=== PATIENT | male | born 1980 | race Caucasian/White ===

== ENCOUNTER 2025-02-05 22:56 | Inpatient (IN) ==
--- NOTE | 2025-02-05 23:33 | Emergency Department Note ---
Impression & Plan Acute pancreatitis, Epigastric abdominal pain, Nausea ED Provider Note NAME: QUAN MILLER AGE: 44 SEX: M : 1980 ARRIVES VIA: Walk-In INFORMANT: Patient ED PROVIDER(S): Bird Perkins MD CHIEF COMPLAINT: Pancreatitis PLAN: Disposition: Admit MEDICAL DECISION MAKING: The patient is a pleasant 44-year-old gentleman with a past medical history of daily alcohol use, GERD, hyperlipidemia who presents to the emergency department via walk-in for "admission" for pancreatitis after being discharged AGAINST MEDICAL ADVICE from [place] emergency department today where he was diagnosed with pancreatitis with concern for pancreatic ductal dilatation and [facility] however the patient reported waiting for an unknown amount of time and decided to leave AGAINST MEDICAL ADVICE to come to our facility. Patient reports he had fluctuating symptoms since Monday which were worse when he would eat and earlier today became increasingly severe and so he presented to [place] emergency department upon returning home this afternoon. He denies any fevers, cough, congestion, chest pain or shortness of breath. He does admit to drinking 3-4 beers nightly. Review of [facility] [place] records demonstrates patient had a lipase elevated at [address] demonstrating subtle inflammation around the pancreas suggestive of acute pancreatitis as well as dilation of the pancreatic duct which is significantly dilated at the head (8.5 mm) however no obstructing stone visualized. On evaluation the patient is in no distress, afebrile blood pressure 190/90 vital signs otherwise stable. Appears clinically dry. Mild epigastric tenderness without guarding or rebound EKG without overt acute ischemia. WBC within normal limits. H/H 11.7/34.6 without recent for comparison. Platelets 273, within normal limits. Potassium 3.2 and electrolytes otherwise unremarkable. Chemistry without metabolic acidosis. LFTs are unremarkable. Lipase is elevated at 1621. Medical alcohol was undetectable. Patient was treated with IV hydration, antiemetics and analgesia with IV morphine. He does agree with plan for admission for further management. Case was discussed with Dr. Montanez, [facility] hospitalist, who will evaluate the patient for admission. MRCP ordered for further evaluation of patient's symptoms. Findings further characterize patient's symptoms with dilated main pancreatic duct with calculi visualized. CBD is dilated with distal smooth tapering and bilobar mild intrahepatic ductal dilatation without evidence of calculi and suggest possible stricture. Mild fat stranding is noted at the level of the distal pancreatic body and pancreatic tail region. Further management per admitting team. Triage Nursing notes reviewed and agree them. Prior/external medical records reviewed Vital Signs: reviewed Differential diagnosis: Gastroenteritis, food borne illness, infections, appendicitis, diverticulitis, inflammatory bowel disease, obstruction, GI bleed, biliary pathology, volvulus, as well as other pathologies. ER treatment provided: See below. Diagnostics interpreted by me: ECG: Normal sinus rhythm, 61 bpm, no ectopy, no overt ST elevation or depression, QTc 426, QRS 84. Cardiac Monitoring: An order for continuous cardiac monitoring was placed and demonstrated normal sinus rhythm, 61 bpm, no ectopy. Laboratory studies: See below Imaging studies: See below Consultation(s): Dr. Montanez [facility] hospitalist HPI: Per MDM. ROS: See above HPI for pertinent positives & negatives. A total of 10 systems reviewed and were otherwise negative. VITALS:See Below PHYSICAL EXAMINATION: GENERAL: Awake, alert, in no distress HENT: Normocephalic, atraumatic. Oropharynx with dry mucous membranes and otherwise unremarkable. EYES: Normal conjunctiva. Sclera non-icteric. NECK: Supple. No nuchal rigidity. FROM. No JVD. RESPIRATORY: Clear to auscultation. CARDIAC: Regular rate, normal rhythm. Extremities warm and well perfused. Pulses equal. ABDOMEN: Soft, non-distended. Mild epigastric tenderness to palpation. No rebound or guarding. No masses. MUSCULOSKELETAL: Chest examination reveals no tenderness. The back is symmetrical on inspection without obvious abnormality. There is no CVA tenderness to palpation. No joint edema. LOWER EXTREMITIES: Calves are equal size bilaterally and non-tender. No edema. No discoloration. NEURO: Normal sensorium. No sensory or motor deficits noted. SKIN: No rash or jaundice noted. Bird Perkins MD Past Med/Surg History Problem List (Updated 02/07/25 @ 03:28 by Bird Perkins MD) Nausea (Acute) Epigastric abdominal pain (Acute) Hypokalemia Hyponatremia Acute pancreatitis (Acute) Social History Smoking Status: Former smoker Second Hand Exposure: No; Do You Dip or Chew Tobacco: No; Tobacco Cessation Education Requested by Patient: No Hx Alcohol Use: Yes Alcohol type: beer Hx Substance Use: No Preferred Language: Belarusian Communication Ability: Effective Equip Tech Required: No Beliefs That Will Affect Care: None Current Living Situation: Family Other Information That Helps Us Care for You: No Feels Safe at Home: Yes Safety Concerns: Feels Safe At This Time Assistive Devices: None Allergies Allergies Allergy/AdvReac Type Severity Reaction Status Date / Time bee venom protein (honey bee) Allergy Severe THROAT Verified 02/05/25 23:59 SWELLED AFTER 1 BEE STING--SEE COMMENT Home Meds Home Medications Medication Instructions Recorded Confirmed budesonide-formoterol HFA 160 2 inh inhalation BID 02/05/25 02/06/25 mcg-4.5 mcg/actuation aerosol inhaler (Breyna) buprenorphine 8 mg-naloxone 2 mg 0.5 tab sublingual TID 02/05/25 02/06/25 sublingual tablet carvedilol 6.25 mg tablet 6.25 mg PO BID 02/05/25 02/06/25 diphenhydramine HCl 25 mg capsule 25 - 50 mg PO DIRECTED PRN 02/05/25 02/06/25 (Benadryl) Allergic Reaction losartan 100 mg tablet 100 mg PO DAILY 02/05/25 02/06/25 multivitamin 1 tab PO DAILY 02/05/25 02/06/25 omeprazole magnesium 20 mg 20 mg PO DAILY 02/05/25 02/06/25 tablet,delayed release (Prilosec OTC) Results & Data (ED) Vital Signs Vital Signs - 24 hr 02/05/25 23:04 02/05/25 23:47 02/06/25 00:00 Temperature 36.8 C Temperature Source Oral Pulse Rate 75 67 Pulse Rate from SpO2 Sensor 67 Respiratory Rate 17 15 Respiratory Effort / Characteristics Non-Labored Spontaneous Respiratory Depth Normal Respiratory Pattern Regular Blood Pressure 195/99 H Blood Pressure Mean 131 Pulse Oximetry 98 99 99 Oxygen Delivery Method Room Air Room Air Sepsis Recent Fever Within 48 Hours No Sepsis New/Unexplained Change in Mental Status No Sepsis Action Taken by Nursing No Action Required 02/06/25 00:00 02/06/25 00:30 02/06/25 00:36 Temperature Temperature Source Pulse Rate 72 76 Pulse Rate from SpO2 Sensor 73 77 Respiratory Rate 16 15 Respiratory Effort / Characteristics Respiratory Depth Respiratory Pattern Blood Pressure 185/123 H 148/99 H Blood Pressure Mean 143 124 Pulse Oximetry 99 97 Oxygen Delivery Method Room Air Room Air Sepsis Recent Fever Within 48 Hours Sepsis New/Unexplained Change in Mental Status Sepsis Action Taken by Nursing 02/06/25 01:00 Temperature Temperature Source Pulse Rate 73 Pulse Rate from SpO2 Sensor Respiratory Rate 16 Respiratory Effort / Characteristics Respiratory Depth Respiratory Pattern Blood Pressure 161/101 H Blood Pressure Mean 136 Pulse Oximetry 97 Oxygen Delivery Method Room Air Sepsis Recent Fever Within 48 Hours Sepsis New/Unexplained Change in Mental Status Sepsis Action Taken by Nursing Laboratory Data Attestation: I reviewed the patient's lab results. 02/06/25 08:07 02/06/25 08:07 Lab Results 02/05/25 02/05/25 02/06/25 Range/Units 23:22 23:35 00:04 WBC 8.27 (4.8-10.8) K/ul RBC 3.65 L (4.70-6.10) M/uL Hgb 11.7 L (14.0-18.0) g/dl POC Hgb 12.2 L (14.0-18.0) g/dl Hct 34.6 L (42.0-52.0) % POC Hct 36 L (42-52) % MCV 94.8 (80.0-100.0) fL MCH 32.1 (25.0-34.0) pg MCHC 33.8 (32.0-36.0) g/dL RDW Std Deviation 39.7 (36.4-46.3) fL RDW Coeff of Luis 11.4 L (11.5-14.5) % Plt Count 273 (130-400) K/uL MPV 10.0 (9.4-12.4) fL Immature Gran % (Auto) 0.2 % Neut % (Auto) 70.1 % Lymph % (Auto) 18.0 % Bradford % (Auto) 8.1 % Eos % (Auto) 3.1 % Baso % (Auto) 0.5 % Neut # (Auto) 5.79 (1.40-6.50) K/uL Lymph # (Auto) 1.49 (1.20-3.40) K/uL Bradford # (Auto) 0.67 H (0.11-0.59) K/uL Eos # (Auto) 0.26 (0.00-0.50) K/uL Baso # (Auto) 0.04 (0.00-0.20) K/uL Immature Gran # (Auto) 0.02 (0.01-0.20) K/uL PT 9.6 (9.0-12.0) Seconds INR 0.9 (0.9-1.1) POC Sodium 134 L (135-144) mmol/L Sodium 135 L (136-145) mmol/L POC Potassium 3.1 L (3.3-5.0) mmol/L Potassium 3.2 L (3.5-5.1) mmol/L POC Chloride 98 L (101-112) mmol/L Chloride 99 (98-107) mmol/L Carbon Dioxide 27 (21-32) mmol/L POC Total CO2 25 (24-31) mmol/L Anion Gap 9 (3-11) POC Anion Gap 15.0 L (16-25) mmol/L POC BUN 5 L (7-18) mg/dl BUN 7 (6-23) mg/dl Creatinine 1.00 (0.6-1.4) mg/dl POC Creatinine 1.0 (0.6-1.3) mg/dl Est Cr Clr Drug Dosing 89.6 ml/min eGFR 95.18 BUN/Creatinine Ratio 7.0 L (10-20) Glucose 86 (70-99(Fasting)) mg/dl POC Glucose (other) 91 (70-99) mg/dl Osmolality 283 (280-300) mOsm/kg Calcium 9.1 (8.6-10.3) mg/dl POC Ioniz Calcium Mary 1.21 (1.12-1.32) mmol/l Magnesium 2.0 (1.7-2.4) mg/dl Total Bilirubin 0.9 (0.2-1.0) mg/dl Direct Bilirubin 0.2 (0-0.2) mg/dl AST 15 (13-39) U/L ALT 13 (7-52) U/L Alkaline Phosphatase 91 (34-104) U/L Total Protein 7.1 (6.0-8.3) gm/dl Albumin 4.2 (3.4-5.0) gm/dl Globulin 2.9 (2.5-4.0) gm/dl Albumin/Globulin Ratio 1.4 (0.9-2) Lipase 1621 H (11-82) U/L Urine Color Yellow Urine Appearance Clear (Clear) Urine pH 6.0 (4.5-7.5) Ur Specific [place] > 1.045 H (1.000-1.030) Urine Protein Trace H (Negative) Urine Glucose (UA) Negative (Negative) Urine Ketones Trace H (Negative) Urine Blood Negative (Negative) Urine Nitrite Negative (Negative) Urine Bilirubin Negative (Negative) Urine Urobilinogen Negative (Negative) Ur Leukocyte Esterase Negative (Negative) Urine WBC (Auto) 0-5 (0-5) /hpf Urine RBC (Auto) 0-2 (0-2) /hpf U Hyaline Cast (Auto) 0-2 (0-2) /lpf U Epithel Cells (Auto) 0-2 (0-2) /hpf Urine Bacteria (Auto) None Seen (None Seen) Urine Osmolality 493 L (500-800) mOsm/kg Ur Random Sodium 54 mmol/L Urine Comment Ethyl Alcohol mg/dL < 10.0 (<10.0) mg/dl Administered Medications Buprenorphine/Naloxone (Buprenorphine/Naloxone 2/0.5mg Tab) 2 tab SL TID [facility] Stop: 03/08/25 08:59 Last Admin: 02/06/25 20:30 Dose: 2 tab Documented By: Admin: 02/06/25 13:31 Dose: 2 tab Documented By: Admin: 02/06/25 09:27 Dose: 2 tab Documented By: EDIN Carvedilol (Carvedilol 6.25 Mg Tab) 6.25 mg PO BID [facility] Stop: 03/08/25 08:59 Last Admin: 02/06/25 20:30 Dose: 6.25 mg Documented By: Admin: 02/06/25 10:46 Dose: 6.25 mg Documented By: EDIN Fluticasone/Vilanterol (Fluticasone/Vilanterol 100/25mcg 14 Puffs/Inhaler) 1 puffs INH DAILY [facility]; Protocol Stop: 03/08/25 08:59 Last Admin: 02/06/25 09:27 Dose: 1 puffs Documented By: EDIN Hydromorphone HCl (Hydromorphone Inj 1 Mg/Ml Syringe) 1 mg IV Q2H PRN PRN Reason: severe pain Stop: 02/20/25 06:24 Last Admin: 02/06/25 21:59 Dose: 1 mg Documented By: Admin: 02/06/25 19:41 Dose: 1 mg Documented By: Admin: 02/06/25 16:21 Dose: 1 mg Documented By: Admin: 02/06/25 12:06 Dose: 1 mg Documented By: Admin: 02/06/25 09:49 Dose: 1 mg Documented By: RRD Lactated Ringer's (Lr) 1,000 mls @ 125 mls/hr IV .Q8H KAREN Stop: 02/09/25 01:29 Last Admin: 02/06/25 19:41 Dose: 125 mls/hr Documented By: Infusion: 02/06/25 18:54 Dose: Infused Documented By: Admin: 02/06/25 10:54 Dose: 125 mls/hr Documented By: Infusion: 02/06/25 10:00 Dose: Infused Documented By: Admin: 02/06/25 02:00 Dose: 125 mls/hr Documented By: KMS Piperacillin Sod/Tazobactam Sod (Zosyn) 4.5 gm in 100 mls @ 25 mls/hr IV Q8H KAREN; Protocol Stop: 02/16/25 15:59 Last Admin: 02/06/25 23:51 Dose: 25 mls/hr Documented By: Infusion: 02/06/25 20:35 Dose: Infused Documented By: Admin: 02/06/25 16:20 Dose: 25 mls/hr Documented By: RRD Losartan Potassium (Losartan Potassium 50 Mg Tab) 100 mg PO QAM KAREN Stop: 03/08/25 08:59 Last Admin: 02/06/25 09:27 Dose: 100 mg Documented By: RRD Pantoprazole Sodium (Pantoprazole 40 Mg Tab) 40 mg PO DAILY KAREN Stop: 03/08/25 08:59 Last Admin: 02/06/25 09:27 Dose: 40 mg Documented By: RRD Discontinued Medications Hydralazine HCl (Hydralazine Hcl 20 Mg/Ml Vial) 5 mg IV NOW ONE Stop: 02/06/25 21:54 Last Admin: 02/06/25 21:59 Dose: 5 mg Documented By: EKF Hydromorphone HCl (Hydromorphone Inj 1 Mg/Ml Syringe) 1 mg IV Q4H PRN PRN Reason: Pain Stop: 02/20/25 06:24 Last Admin: 02/06/25 07:30 Dose: 1 mg Documented By: EDIN Sodium Chloride (Nss) 1,000 mls @ 999 mls/hr IV .Q1H1M ONE Stop: 02/06/25 00:18 Last Infusion: 02/06/25 00:58 Dose: Infused Documented By: Admin: 02/05/25 23:36 Dose: 999 mls/hr Documented By: SADIQ Acetaminophen (Ofirmev) 1,000 mg in 100 mls @ 400 mls/hr IV NOW STA Stop: 02/05/25 23:57 Last Infusion: 02/06/25 00:35 Dose: Infused Documented By: Admin: 02/05/25 23:59 Dose: 400 mls/hr Documented By: SADIQ Piperacillin Sod/Tazobactam Sod (Zosyn) 4.5 gm in 100 mls @ 200 mls/hr IV ONE ONE; Protocol Stop: 02/06/25 08:59 Last Infusion: 02/06/25 11:37 Dose: Infused Documented By: Admin: 02/06/25 10:45 Dose: 200 mls/hr Documented By: EDIN Ketorolac Tromethamine (Ketorolac Tromethamine 15 Mg/Ml Vial) 15 mg IV NOW ONE Stop: 02/06/25 06:26 Last Admin: 02/06/25 06:38 Dose: 15 mg Documented By: Morphine Sulfate (Morphine Sulfate 4 Mg/Ml 1 Ml Carp\\Vial) 4 mg IV NOW STA Stop: 02/05/25 23:44 Last Admin: 02/05/25 23:58 Dose: 4 mg Documented By: SADIQ Morphine Sulfate (Morphine Sulfate 4 Mg/Ml 1 Ml Carp\\Vial) 4 mg IV Q3H PRN PRN Reason: Pain (6,7,8,9,10) Stop: 02/20/25 01:23 Last Admin: 02/06/25 05:27 Dose: 4 mg Documented By: Ondansetron HCl (Ondansetron Inj 2 Mg/Ml 2 Ml Vial) 4 mg IV NOW STA Stop: 02/05/25 23:44 Last Admin: 02/05/25 23:58 Dose: 4 mg Documented By: SADIQ Potassium Chloride (Potassium Chloride Crtab 20 Meq Tabcr) 40 meq PO NOW STA Stop: 02/06/25 01:35 Last Admin: 02/06/25 02:00 Dose: 40 meq Documented By: SADIQ Imaging Data Radiologist's Impression: Cholangiopancreatography MRI 02/06/25 00:40 EXAM: MR MRCP CLINICAL HISTORY: pancreatitis TECHNIQUE: Multiplanar/multisequence MRI of the upper abdomen with MRCP was performed without use of gadolinium. COMPARISON: none FINDINGS: Dilated entire length of main pancreatic duct(diameter-6.8mm) with few ductal calculi of size 3-4mm seen near head region and associated mild diffuse pancreatic parenchymal atrophy seen. No peripancreatic collection/cyst seen. Common bile duct is dilated(8mm) with distal smooth tapering and bilobar mild intrahepatic biliary ductal dilatation. No evidence of calculi seen. Mild fat stranding is noted at the level of the distal pancreatic body and pancreatic tail region. Reactive thickening of the anterior renal fascia is noted on left side with mild perinephric fat stranding and fluid. Suggested serum amylase/lipase correlation for underlying acute over chronic pancreatitis changes. The liver is of normal signal intensity without evidence of a hepatic mass. The gallbladder is unremarkable. The adrenal glands demonstrate no gross mass. The kidneys demonstrate no evidence of contour-deforming mass lesion. IMPRESSION: 1. Dilated entire length of main pancreatic duct with few ductal calculi near head region and associated mild pancreatic parenchymal atrophy-- Features of Chronic pancreatitis. 2. No peripancreatic collection/cyst seen. 3. Common bile duct is dilated with distal smooth tapering and bilobar mild intrahepatic biliary ductal dilatation. No evidence of calculi seen- Possible distal CBD benign stricture. Suggested ERCP correlation. 4. Mild fat stranding is noted at the level of the distal pancreatic body and pancreatic tail region. Reactive thickening of the anterior renal fascia is noted on left side with mild perinephric fat stranding and fluid. Suggested serum amylase/lipase correlation for underlying acute over chronic pancreatitis changes. Electronically signed by Sridhar Monaco 02-06-2025 02:34 AM Discharge Plan Visit Data Chief Complaint: Abdominal Pain Stated Complaint: PANCREATITIS ED Provider: Bird Perkins Discharge Problem: Acute pancreatitis, Epigastric abdominal pain, Nausea Patient Disposition: Admitted As Inpatient Condition: Fair Discharge Instructions Interventions: ED Discharge Assessment Last Done: 02/06/25 04:55 Discharge Problem: Acute pancreatitis Qualifiers: Pancreatitis type: unspecified pancreatitis type Acute pancreatitis complication: unspecified Qualified Code(s): K85.90 - Acute pancreatitis without necrosis or infection, unspecified
[2025-02-05] MEDS: SODIUM CHLORIDE 0.9% 1,000 ML IV ONE (23:36)
[2025-02-05 23:58] LABS: Hematocrit (blood only) 34.6 % (42.0-52.0); Hemoglobin 11.7 g/dl (14.0-18.0); Immature Granulocytes # (auto) 0.02 K/uL (0.01-0.20); Immature Granulocytes % (auto) 0.2 %; Mean Corpuscular Hemoglobin 32.1 pg (25.0-34.0); Mean Corpuscular Volume 94.8 fL (80.0-100.0); Platelet Count 273 K/uL (130-400); RDW Standard Deviation 39.7 fL (36.4-46.3); Red Blood Count 3.65 M/uL (4.70-6.10); White Blood Count 8.27 K/ul (4.8-10.8)
[2025-02-05] MEDS: ONDANSETRON INJ 2 MG/ML 2 ML VIAL IV STA (23:58)
[2025-02-05] MEDS: MoRPHine SULFATE 4 MG/ML 1 ML CARP\\VIAL IV STA (23:58)
[2025-02-05] MEDS: ACETAMINOPHEN 1,000 MG/100 ML VIAL IV STA (23:59)
[2025-02-06 00:15] LABS: Anion Gap 9.0 (3-11); Blood Urea Nitrogen 7.0 mg/dl (6-23); Calcium 9.1 mg/dl (8.6-10.3); Carbon Dioxide 27.0 mmol/L (21-32); Chloride 99.0 mmol/L (98-107); Creatinine Clr Calc Pharmacy 89.6 ml/min; Glucose 86.0 mg/dl (70-99(Fasting)); Potassium 3.2 mmol/L (3.5-5.1); Sodium 135.0 mmol/L (136-145)
[2025-02-06 00:28] LABS: Appearance Urine Clear (Clear); Bacteria Urine Automated None Seen (None Seen); Cast Urine Automated 0-2 /lpf (0-2); Epithelial Cell Urine Auto 0-2 /hpf (0-2); Glucose Urine UA Negative (Negative); RBC Urine Automated 0-2 /hpf (0-2); WBC Urine Automated 0-5 /hpf (0-5)
[2025-02-06 00:30] LABS: INR 0.9 (0.9-1.1); Prothrombin Time 9.6 Seconds (9.0-12.0)
[2025-02-06 00:45] LABS: Alanine Aminotransferase 13.0 U/L (7-52); Albumin Globulin Ratio 1.4 (0.9-2); Alkaline Phosphatase 91.0 U/L (34-104); Bilirubin,Total 0.9 mg/dl (0.2-1.0); Globulin 2.9 gm/dl (2.5-4.0); Lipase 1621.0 U/L (11-82); Total Protein 7.1 gm/dl (6.0-8.3)
--- NOTE | 2025-02-06 01:00 | History & Physical Report ---
Date of Service February 06, 2025 Assessment & Plan (1) Acute pancreatitis: (2) Hyponatremia: (3) Hypokalemia: Plan 44-year-old male PMHx daily alcohol use, GERD, HLD and recent dx of pancreatitis the day of arrival at the [facility] who presents for abdominal pain, desiring admission to [facility] for management of such. ED evaluation at [facility] reveals CBC without leukocytosis, H/H 11.7/34.6; PT/INR 9.6/0.9; CMP Na 135, K 3.2, BUN/Cr 7.0; Lipase 1621; UA with protein, ketones, without bacteria; EtOH pending;. provided with 1L NSS, Ondansetron 4mg IV, morphine 4mg IV, acetaminophen 1g IV in ED. 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 No h/o withdrawal. - CBC without leukocytosis, H/H 11.7/34.6; PT/INR WNL; CMP Na 135, K 3.2, Ca 9.1; LFTs WNL; Lipase 1621 - repeat BMP am - CTAP completed outpatient -- Subtle inflammation around the pancreas (acute pancreatitis), dilation of the pancreatic duct, significantly dilated at the head (8.5 mm), no obstructing stone visualized - NPO - LR @ 125 mL/hr - Morphine prn pain, deescalate as pt tolerates - Zofran prn N/V - MRCP with dilated length and main pancreatic duct with few ductal calculi near head and parenchymal atrophy (chronic pancreatitis), no cyst, CBD dilated and possible distal CBD benign stricture (suggest ERCP), mild fat stranding of pancreatic body and tail as well as reactive thickening of anterior renal fascia on L side with mild perinephric stranding and fluid - GI consulted - appreciate input + recs #Hyponatremia Likely secondary to decreased intake. - Na 135, glucose 86 - BMP am - Serum osmol, Urine Na, Urine Osmol pending - IVF as above #Hypokalemia Asymptomatic currently. - K 3.2, Mg pending - BMP pending - 40 mEq KCl po --> NPO then - EKG pending #HTN- Carvedilol, losartan - continue #GERD- Omeprazole - continue #Opioid use disorder- Suboxone TID - continue #Pulm- Breyna or formulary equivalent - continue Dispo: Admit, med/sx VTE Prophylaxis: SCDs This document was dictated utilizing [employer]ama. Please excuse any gra mmatical errors that may be secondary to use of this software. Admission and Anticipated Discharge Date Admission Date: 02/06/2025 History of Present Illness Chief Complaint: Abdominal pain Primary Care Provider: Andre Farrar DO 44-year-old male PMHx daily alcohol use, GERD, HLD and recent dx of pancreatitis the day of arrival at the [facility] who presents for abdominal pain, desiring admission to [facility] for management of such. 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 He states that he has had this pain in the past and after resting it normally will go away however it did not at this time. The following day he woke up and still had RUQ abdominal pain, stating that he just felt he was in his upper abdomen and moved more towards the center. He took his blood pressure medications that morning and had an episode of nausea with vomiting. He was unable to eat much and believes this is why he threw up. He did have a bowel movement. And approximate 2 hours later the pain had resolved. He states that he normally drinks water and green tea throughout the day but this was causing him some abdominal pain. He did try to eat chicken noodle soup but the pain became significantly worse after doing so. On the day of arrival, he states that his pain was "excruciating", rating it a 7-8 out of 10 on the pain scale at its worst, so he decided to come to the ED. His current pain is a 5 out of 10 on the pain scale and he is not having any nausea or vomiting. States he has never had this happen before. Patient states that he drinks approximately 2-4 beers per night, every night. He has never had pancreatitis in the past, but that he has had the symptoms occur in the past. Overall patient denies chest pain, SOB, palpitations, diarrhea/constipation, numbness/tingling, fever/chills, URI symptoms, LUTS, weakness, or syncope. Patient takes his medications as prescribed. At [facility], he was diagnosed with pancreatitis and there was concern for pancreatic ductal dilatation. Pt was to be transferred to [facility] for ERCP, however after an extended period of waiting, he decided to leave [place] and come to [facility]. [facility] records reveal a lipase of [address] showing subtle inflammation around the pancreas which is suggestive of acute pancreatitis and dilation of pancreatic duct, and significantly dilated at the head (8.5mm) without obstructing stone identified. ED evaluation at [facility] reveals CBC without leukocytosis, H/H 11.7/34.6; PT/INR 9.6/0.9; CMP Na 135, K 3.2, BUN/Cr 7.0; Lipase 1621; UA with protein, ketones, without bacteria; EtOH pending;. provided with 1L NSS, Ondansetron 4mg IV, morphine 4mg IV, acetaminophen 1g IV in ED. Please see Dr. Montanez's attestation for adjustments/additions to treatment plan. Allergies Allergy/AdvReac Type Severity Reaction Status Date / Time bee venom protein (honey bee) Allergy Severe THROAT Verified 02/05/25 23:59 SWELLED AFTER 1 BEE STING--SEE COMMENT Home Medications Medication Instructions Recorded Confirmed Type budesonide-formoterol HFA 160 2 inh inhalation BID 02/05/25 02/06/25 History mcg-4.5 mcg/actuation aerosol inhaler (Breyna) buprenorphine 8 mg-naloxone 2 mg 0.5 tab sublingual TID 02/05/25 02/06/25 History sublingual tablet carvedilol 6.25 mg tablet 6.25 mg PO BID 02/05/25 02/06/25 History diphenhydramine HCl 25 mg capsule 25 - 50 mg PO DIRECTED PRN 02/05/25 02/06/25 History (Benadryl) Allergic Reaction losartan 100 mg tablet 100 mg PO DAILY 02/05/25 02/06/25 History multivitamin 1 tab PO DAILY 02/05/25 02/06/25 History omeprazole magnesium 20 mg 20 mg PO DAILY 02/05/25 02/06/25 History tablet,delayed release (Prilosec OTC) Past Med/Surg History Problem List (Updated 02/06/25 @ 02:20 by Ryley Cornejo PA-C) Hypokalemia Hyponatremia Acute pancreatitis Social History Smoking Status: Former smoker Preferred Language: [place] Feels Safe at Home: Yes Review of Systems Review of Systems: All systems reviewed & are unremarkable except as noted in Subjective Physical Exam Physical Exam: General: No acute distress Skin: Warm and dry Head: Normocephalic, atraumatic Eyes: PERRL, conjunctivae clear, sclera non-icteric; wearing glasses ENT: External ear and ear canal without swelling; nose atraumatic; good dentition, tongue normal appearance, pharynx normal Neck: Supple, no LAD Cardio: RRR, no M/G/R, S1 and S2 normal Resp: No respiratory distress, Lungs CTA in all lobes bilaterally, no wheezes, rales, or rhonchi Abdomen: Soft, symmetric, mild tenderness to palpation epigastric area; No masses or hepatosplenomegaly; Bowel sounds normoactive MSK: No deformities; pulses palpable and equal; no edema. Neuro: Awake, alert; Sensation intact bilaterally; CN grossly intact Psych: Appropriate mood and affect; good judgement and insight. Results & Data Results & Data Vital Signs (Past 12 Hours) Vital Signs Temp Pulse Resp BP Pulse Ox O2 Del Method 02/06/25 00:36 76 15 97 Room Air 02/06/25 00:30 148/99 H 02/06/25 00:00 72 16 185/123 H 99 Room Air 02/06/25 00:00 99 Room Air 02/05/25 23:47 67 15 99 02/05/25 23:04 36.8 C 75 17 195/99 H 98 Room Air Laboratory Results 02/06/25 02/05/25 02/05/25 00:04 23:35 23:22 WBC 8.27 RBC 3.65 L Hgb 11.7 L POC Hgb 12.2 L Hct 34.6 L POC Hct 36 L MCV 94.8 MCH 32.1 MCHC 33.8 RDW Std Deviation 39.7 RDW Coeff of Luis 11.4 L Plt Count 273 MPV 10.0 Immature Gran % (Auto) 0.2 Neut % (Auto) 70.1 Lymph % (Auto) 18.0 Ray % (Auto) 8.1 Eos % (Auto) 3.1 Baso % (Auto) 0.5 Neut # (Auto) 5.79 Lymph # (Auto) 1.49 Ray # (Auto) 0.67 H Eos # (Auto) 0.26 Baso # (Auto) 0.04 Immature Gran # (Auto) 0.02 PT 9.6 INR 0.9 POC Sodium 134 L Sodium 135 L POC Potassium 3.1 L Potassium 3.2 L POC Chloride 98 L Chloride 99 Carbon Dioxide 27 POC Total CO2 25 Anion Gap 9 POC Anion Gap 15.0 L POC BUN 5 L BUN 7 Creatinine 1.00 POC Creatinine 1.0 Est Cr Clr Drug Dosing 89.6 eGFR 95.18 BUN/Creatinine Ratio 7.0 L Glucose 86 POC Glucose (other) 91 Calcium 9.1 POC Ioniz Calcium Mary 1.21 Total Bilirubin 0.9 Direct Bilirubin 0.2 AST 15 ALT 13 Alkaline Phosphatase 91 Total Protein 7.1 Albumin 4.2 Globulin 2.9 Albumin/Globulin Ratio 1.4 Lipase 1621 H Urine Color Yellow Urine Appearance Clear Urine pH 6.0 Ur Specific [place] > 1.045 H Urine Protein Trace H Urine Glucose (UA) Negative Urine Ketones Trace H Urine Blood Negative Urine Nitrite Negative Urine Bilirubin Negative Urine Urobilinogen Negative Ur Leukocyte Esterase Negative Urine WBC (Auto) 0-5 Urine RBC (Auto) 0-2 U Hyaline Cast (Auto) 0-2 U Epithel Cells (Auto) 0-2 Urine Bacteria (Auto) None Seen Urine Comment Diagnostic Findings [place] [phone] Magnetic Resonance Report Patient: QUAN MILLER Admit Date: 02/05/25 MR#: [id number] Address1: [address] [place] [address] Acct ID:[id number] Address2: Date: 1980 [facility] Zip: [place] [address] Age: 44 Location: ED Sex: M Room/Bed: Att Phy: Diagnosis: PANCREATITIS Haylie Phy: Andre Farrar DO Service Date: 02/06/25 [facility] Phy: Interpreting Phy: Sridhar Chávez MDAdmit Phy: Ordering Phy: Bird Perkins M.D. cc: ~ EXAM: MR MRCP CLINICAL HISTORY: pancreatitis TECHNIQUE: Multiplanar/multisequence MRI of the upper abdomen with MRCP was performed without use of gadolinium. COMPARISON: none FINDINGS: Dilated entire length of main pancreatic duct(diameter-6.8mm) with few ductal calculi of size 3-4mm seen near head region and associated mild diffuse pancreatic parenchymal atrophy seen. No peripancreatic collection/cyst seen. Common bile duct is dilated(8mm) with distal smooth tapering and bilobar mild intrahepatic biliary ductal dilatation. No evidence of calculi seen. Mild fat stranding is noted at the level of the distal pancreatic body and pancreatic tail region. Reactive thickening of the anterior renal fascia is noted on left side with mild perinephric fat stranding and fluid. Suggested serum amylase/lipase correlation for underlying acute over chronic pancreatitis changes. The liver is of normal signal intensity without evidence of a hepatic mass. The gallbladder is unremarkable. The adrenal glands demonstrate no gross mass. The kidneys demonstrate no evidence of contour-deforming mass lesion. IMPRESSION: 1. Dilated entire length of main pancreatic duct with few ductal calculi near head region and associated mild pancreatic parenchymal atrophy-- Features of Chronic pancreatitis. 2. No peripancreatic collection/cyst seen. 3. Common bile duct is dilated with distal smooth tapering and bilobar mild intrahepatic biliary ductal dilatation. No evidence of calculi seen- Possible distal CBD benign stricture. Suggested ERCP correlation. 4. Mild fat stranding is noted at the level of the distal pancreatic body and pancreatic tail region. Reactive thickening of the anterior renal fascia is noted on left side with mild perinephric fat stranding and fluid. Suggested serum amylase/lipase correlation for underlying acute over chronic pancreatitis changes. Electronically signed by Sridhar Chávez 02-06-2025 02:34 AM Dictated: 02/06/25 0148 Transcribed: Medications Administered 1L NSS Ondansetron 4mg IV Morphine 4mg IV Acetaminophen 1g IV Code Status & VTE Plan Code Status Full Supervising Physician Co-Signing Physician Notes Patient seen and examined, chart reviewed, case discussed with MICHELLE Cornejo I agree with the assessment and plan as document above. In brief, patient is a 44-year-old male presenting with abdominal pain. Was [facility] at [facility] earlier today for these complaints and had imaging and labs done. Findings suggestive of acute pancreatitis. some dilation of the pancreatic duct, significantly dilated at the head (8.5 mm). No obstructing stone visualized Patient in mild discomfort at present, nausea has improved Came to [place] [facility] for ERCP On physical exam he is resting comfortably, no acute distress Skin warm, dry, intact, no rashes or lesions HEENTmoist [place] membranes, neck supple Heart+ S1, S2, regular, no murmur/rub/gallops LungsCTA anteriorly Abdomensoft, tender in the mid epigastric area, no rebound/guarding Labs and images reviewed Sodium = 135, potassium = 3.2 Lipase = 1621 MRCP obtained Assessment/plan Will keep patient n.p.o., liberal use of IV fluids Pain control antiemetics as needed GI consultation appreciated. Possible ERCP in the morning Remainder as above PG Care Time/CCT Total # of Minutes Spent Total Time Spent with Patient: Total time spent is greater than 50% in coordination of care (as documented) at patient's floor/unit and/or counseling patient: Coding Level of Care Code 32223 INT INP/OBS CARE 375MIN Diagnoses Acute pancreatitis K85.90 Hyponatremia E87.1 Hypokalemia E87.6
[2025-02-06] MEDS ORDERED: MoRPHine SULFATE 2 MG/ML CARP IV PRN (01:24)
[2025-02-06] MEDS: POTASSIUM CHLORIDE CRTAB 20 MEQ TABCR PO STA (02:00)
[2025-02-06] MEDS: LACTATED RINGER'S 1,000 ML IV SCH (02:00)
--- NOTE | 2025-02-06 02:35 | Magnetic Resonance Report ---
EXAM: MR MRCP CLINICAL HISTORY: pancreatitis TECHNIQUE: Multiplanar/multisequence MRI of the upper abdomen with MRCP was performed without use of gadolinium. COMPARISON: none FINDINGS: Dilated entire length of main pancreatic duct(diameter-6.8mm) with few ductal calculi of size 3-4mm seen near head region and associated mild diffuse pancreatic parenchymal atrophy seen. No peripancreatic collection/cyst seen. Common bile duct is dilated(8mm) with distal smooth tapering and bilobar mild intrahepatic biliary ductal dilatation. No evidence of calculi seen. Mild fat stranding is noted at the level of the distal pancreatic body and pancreatic tail region. Reactive thickening of the anterior renal fascia is noted on left side with mild perinephric fat stranding and fluid. Suggested serum amylase/lipase correlation for underlying acute over chronic pancreatitis changes. The liver is of normal signal intensity without evidence of a hepatic mass. The gallbladder is unremarkable. The adrenal glands demonstrate no gross mass. The kidneys demonstrate no evidence of contour-deforming mass lesion. IMPRESSION: 1. Dilated entire length of main pancreatic duct with few ductal calculi near head region and associated mild pancreatic parenchymal atrophy-- Features of Chronic pancreatitis. 2. No peripancreatic collection/cyst seen. 3. Common bile duct is dilated with distal smooth tapering and bilobar mild intrahepatic biliary ductal dilatation. No evidence of calculi seen- Possible distal CBD benign stricture. Suggested ERCP correlation. 4. Mild fat stranding is noted at the level of the distal pancreatic body and pancreatic tail region. Reactive thickening of the anterior renal fascia is noted on left side with mild perinephric fat stranding and fluid. Suggested serum amylase/lipase correlation for underlying acute over chronic pancreatitis changes. Electronically signed by Sridhar Monaco 02-06-2025 02:34 AM
[2025-02-06 02:41] LABS: Magnesium 2.0 mg/dl (1.7-2.4)
[2025-02-06] MEDS: MoRPHine SULFATE 4 MG/ML 1 ML CARP\\VIAL IV PRN (05:27)
[2025-02-06] MEDS ORDERED: POLYETHYLENE (MIRALAX) 17 GM PACK PO PRN (05:31)
[2025-02-06] MEDS ORDERED: MELATONIN 3 MG TAB PO PRN (05:31)
[2025-02-06] MEDS ORDERED: NALOXONE HCL 0.4 MG/1 ML VIAL/CARP IV PRN (05:31)
[2025-02-06] MEDS ORDERED: HYDROmorphone INJ 0.5 MG/0.5 ML SYR IV PRN ×2 (06:25→09:22)
[2025-02-06] MEDS: KETOROLAC TROMETHAMINE 15 MG/ML VIAL IV ONE (06:38)
[2025-02-06] MEDS: HYDROmorphone INJ 1 MG/ML SYRINGE IV PRN ×2 (07:30→09:49)
[2025-02-06 08:36] LABS: Hematocrit (blood only) 30.2 % (42.0-52.0); Hemoglobin 10.3 g/dl (14.0-18.0); Mean Corpuscular Hemoglobin 32.4 pg (25.0-34.0); Mean Corpuscular Volume 95.0 fL (80.0-100.0); Platelet Count 215 K/uL (130-400); RDW Standard Deviation 39.3 fL (36.4-46.3); Red Blood Count 3.18 M/uL (4.70-6.10); White Blood Count 6.45 K/ul (4.8-10.8)
[2025-02-06 09:05] LABS: Alanine Aminotransferase 9.0 U/L (7-52); Albumin Globulin Ratio 1.4 (0.9-2); Alkaline Phosphatase 78.0 U/L (34-104); Anion Gap 7.0 (3-11); Bilirubin,Total 0.8 mg/dl (0.2-1.0); Blood Urea Nitrogen 6.0 mg/dl (6-23); Calcium 8.8 mg/dl (8.6-10.3); Carbon Dioxide 25.0 mmol/L (21-32); Chloride 105.0 mmol/L (98-107); Creatinine Clr Calc Pharmacy 101.7 ml/min; Globulin 2.5 gm/dl (2.5-4.0); Glucose 95.0 mg/dl (70-99(Fasting)); Potassium 4.0 mmol/L (3.5-5.1); Sodium 137.0 mmol/L (136-145); Total Protein 6.1 gm/dl (6.0-8.3)
[2025-02-06] MEDS: BUPRENORPHINE/NALOXONE 2/0.5MG TAB SL SCH (09:27)
[2025-02-06] MEDS: LOSARTAN POTASSIUM 50 MG TAB PO SCH (09:27)
[2025-02-06] MEDS: FLUTICASONE/VILANTEROL 100/25MCG 14 PUFFS/INHALER INH SCH (09:27)
--- NOTE | 2025-02-06 10:32 | Gastrointestinal Consultation ---
Date of Consultation February 06, 2025 Assessment & Plan (1) Acute pancreatitis: Acute on chronic pancreatitis picture. Currently would continue NPO status with aggressive IV fluid hydration. Continue pain management per primary team. Continue to monitor LFTs. Did discuss MRCP with Dr. Starr who reviewed this imaging. No current emergent plans for ERCP at this time. Will continue to follow and give further guidance pending patient's clinical course. Patient should have outpatient EUS. Needs to focus on alcohol cessation. Will plan eventual implementation of pancreatic enzymes as the acute picture improves and diet is advanced. Supervising Physician Co-Signing Physician Notes I saw and examined this patient with our nurse practitioner and agree with her assessment and plan. Clinical picture consistent with acute on chronic pancreatitis due to alcoholism. Calcifications support alcohol as the etiology. Suspect tapering of the bile duct seen on imaging is related to his chronic pancreatitis. Normal LFTs make a neoplastic process less likely. However chronic pancreatitis puts patients at an increased risk for pancreatic neoplasm and 10% of people with pancreatic cancer present with pancreatitis. In light of this I recommend reimaging either with a repeat MRI or endoscopic ultrasound to better evaluate the head of the pancreas and distal bile duct in 4 to 6 weeks. History of Present Illness Reason for Consultation: Pancreatitis, dilated duct Attending Physician: Rao Romero MD History of Present Illness Patient is a 44 yo male with PMH of significant alcohol use, GERD, HLD, who was diagnosed with pancreatitis at [facility]. He notes he developed significant epigastric/RUQ pain. He vomited once due to pain. He was unable to eat at home. The pain was severe in nature and when he had previously had a similar episode he was instructed by an urgent care provider to go to the ED if it happened again, so this is what he did. He left [facility] from [place] after they attempted to transfer him to [facility] because he didn't want to wait. A CT scan at [facility] reportedly suggested pancreatitis and dilation of the pancreatic duct at the head. There was no obstructing stone noted. Lipase was 1800. AT [facility] he had an MRCP that indicated: IMPRESSION: 1. Dilated entire length of main pancreatic duct with few ductal calculi near head region and associated mild pancreatic parenchymal atrophy-- Features of Chronic pancreatitis. 2. No peripancreatic collection/cyst seen. 3. Common bile duct is dilated with distal smooth tapering and bilobar mild intrahepatic biliary ductal dilatation. No evidence of calculi seen- Possible distal CBD benign stricture. Suggested ERCP correlation. 4. Mild fat stranding is noted at the level of the distal pancreatic body and pancreatic tail region. Reactive thickening of the anterior renal fascia is noted on left side with mild perinephric fat stranding and fluid. Suggested serum amylase/lipase correlation for underlying acute over chronic pancreatitis changes. His WBC is within normal limits. He is afebrile. AST 13, ALT 9, T bili 0.8. He notes improvement of pain with his IV pain meds. He is NPO and receiving IV flui ds. No jaundice. No unintentional weight loss. He notes his PCP had previously advised that he reduce alcohol and red meat consumption. He does tell me he has 2-3 drinks multiple nights per week. He notes he never exceeds 5-6 drinks. He denies history of cholesterol issues. He does endorse similar episodes of this pain at home for which he did not seek evaluation. No new medications. No recent viral infections. Allergies Allergy/AdvReac Type Severity Reaction Status Date / Time bee venom protein (honey bee) Allergy Severe THROAT Verified 02/05/25 23:59 SWELLED AFTER 1 BEE STING--SEE COMMENT Home Medications Medication Instructions Recorded Confirmed Type budesonide-formoterol HFA 160 2 inh inhalation BID 02/05/25 02/06/25 History mcg-4.5 mcg/actuation aerosol inhaler (Breyna) buprenorphine 8 mg-naloxone 2 mg 0.5 tab sublingual TID 02/05/25 02/06/25 History sublingual tablet carvedilol 6.25 mg tablet 6.25 mg PO BID 02/05/25 02/06/25 History diphenhydramine HCl 25 mg capsule 25 - 50 mg PO DIRECTED PRN 02/05/25 02/06/25 History (Benadryl) Allergic Reaction losartan 100 mg tablet 100 mg PO DAILY 02/05/25 02/06/25 History multivitamin 1 tab PO DAILY 02/05/25 02/06/25 History omeprazole magnesium 20 mg 20 mg PO DAILY 02/05/25 02/06/25 History tablet,delayed release (Prilosec OTC) Patient History Social History Smoking Status: Former smoker Second Hand Exposure: No; Do You Dip or Chew Tobacco: No; Tobacco Cessation Education Requested by Patient: No Hx Alcohol Use: Yes Alcohol type: beer Hx Substance Use: No Preferred Language: Citizen Of [place] Communication Ability: Effective Flight Superintendent Required: No Beliefs That Will Affect Care: None Current Living Situation: Family Other Information That Helps Us Care for You: No Feels Safe at Home: Yes Safety Concerns: Feels Safe At This Time Assistive Devices: None Review of Systems Constitutional: no fever and no chills Respiratory: no cough and no dyspnea Cardiovascular: no chest pain Gastrointestinal: + abdominal pain; no heartburn, no coffe e ground emesis and no melena Physical Exam Constitutional: well developed Gastrointestinal (Abdomen): normal bowel sounds, soft, nontender, no hepatosplenomegaly Psychiatric: Orientation: alert and oriented x 3 Results & Data Vital Signs (Past 12 Hours) Vital Signs Temp Pulse Pulse Resp BP BP BP 02/06/25 09:15 59 L 193/104 H 201/88 H 02/06/25 07:11 36.7 C 55 L 16 175/96 H 02/06/25 05:33 36.9 C 58 L 16 178/90 H 02/06/25 05:00 153/96 H 02/06/25 04:30 78 22 146/91 H 02/06/25 04:00 84 18 144/86 H 02/06/25 03:30 68 15 02/06/25 03:00 76 19 150/87 H 02/06/25 02:30 65 12 146/91 H 02/06/25 02:11 75 02/06/25 02:00 87 29 H 02/06/25 01:00 73 16 161/101 H 02/06/25 00:36 76 15 02/06/25 00:30 148/99 H 02/06/25 00:00 72 16 185/123 H 02/06/25 00:00 02/05/25 23:47 67 15 02/05/25 23:04 36.8 C 75 17 195/99 H Pulse Ox O2 Del Method 02/06/25 09:15 02/06/25 07:11 97 Room Air 02/06/25 05:33 100 Room Air 02/06/25 05:00 02/06/25 04:30 97 Room Air 02/06/25 04:00 98 Room Air 02/06/25 03:30 96 02/06/25 03:00 99 Room Air 02/06/25 02:30 97 Room Air 02/06/25 02:11 02/06/25 02:00 97 Room Air 02/06/25 01:00 97 Room Air 02/06/25 00:36 97 Room Air 02/06/25 00:30 02/06/25 00:00 99 Room Air 02/06/25 00:00 99 Room Air 02/05/25 23:47 99 02/05/25 23:04 98 Room Air Laboratory Results Laboratory Results - last 48 hr 02/05/25 02/05/25 02/06/25 23:22 23:35 00:04 WBC 8.27 RBC 3.65 L Hgb 11.7 L POC Hgb 12.2 L Hct 34.6 L POC Hct 36 L MCV 94.8 MCH 32.1 MCHC 33.8 RDW Std Deviation 39.7 RDW Coeff of Luis 11.4 L Plt Count 273 MPV 10.0 Immature Gran % (Auto) 0.2 Neut % (Auto) 70.1 Lymph % (Auto) 18.0 Marathon % (Auto) 8.1 Eos % (Auto) 3.1 Baso % (Auto) 0.5 Neut # (Auto) 5.79 Lymph # (Auto) 1.49 Marathon # (Auto) 0.67 H Eos # (Auto) 0.26 Baso # (Auto) 0.04 Immature Gran # (Auto) 0.02 PT 9.6 INR 0.9 POC Sodium 134 L Sodium 135 L POC Potassium 3.1 L Potassium 3.2 L POC Chloride 98 L Chloride 99 Carbon Dioxide 27 POC Total CO2 25 Anion Gap 9 POC Anion Gap 15.0 L POC BUN 5 L BUN 7 Creatinine 1.00 POC Creatinine 1.0 Est Cr Clr Drug Dosing 89.6 eGFR 95.18 BUN/Creatinine Ratio 7.0 L Glucose 86 POC Glucose (other) 91 Osmolality 283 Calcium 9.1 POC Ioniz Calcium Mary 1.21 Magnesium 2.0 Total Bilirubin 0.9 Direct Bilirubin 0.2 AST 15 ALT 13 Alkaline Phosphatase 91 Total Protein 7.1 Albumin 4.2 Globulin 2.9 Albumin/Globulin Ratio 1.4 Lipase 1621 H Urine Color Yellow Urine Appearance Clear Urine pH 6.0 Ur Specific Blanchard > 1.045 H Urine Protein Trace H Urine Glucose (UA) Negative Urine Ketones Trace H Urine Blood Negative Urine Nitrite Negative Urine Bilirubin Negative Urine Urobilinogen Negative Ur Leukocyte Esterase Negative Urine WBC (Auto) 0-5 Urine RBC (Auto) 0-2 U Hyaline Cast (Auto) 0-2 U Epithel Cells (Auto) 0-2 Urine Bacteria (Auto) None Seen Urine Osmolality 493 L Ur Random Sodium 54 Urine Comment Ethyl Alcohol mg/dL < 10.0 02/06/25 08:07 WBC 6.45 RBC 3.18 L Hgb 10.3 L POC Hgb Hct 30.2 L POC Hct MCV 95.0 MCH 32.4 MCHC 34.1 RDW Std Deviation 39.3 RDW Coeff of Luis 11.3 L Plt Count 215 MPV 10.3 Immature Gran % (Auto) Neut % (Auto) Lymph % (Auto) Marathon % (Auto) Eos % (Auto) Baso % (Auto) Neut # (Auto) Lymph # (Auto) Marathon # (Auto) Eos # (Auto) Baso # (Auto) Immature Gran # (Auto) PT INR POC Sodium Sodium 137 POC Potassium Potassium 4.0 D POC Chloride Chloride 105 Carbon Dioxide 25 POC Total CO2 Anion Gap 7 POC Anion Gap POC BUN BUN 6 Creatinine 0.88 POC Creatinine Est Cr Clr Drug Dosing 101.7 eGFR 108.74 BUN/Creatinine Ratio 6.8 L Glucose 95 POC Glucose (other) Osmolality Calcium 8.8 POC Ioniz Calcium Mary Magnesium Total Bilirubin 0.8 Direct Bilirubin AST 13 ALT 9 Alkaline Phosphatase 78 Total Protein 6.1 Albumin 3.6 Globulin 2.5 Albumin/Globulin Ratio 1.4 Lipase Urine Color Urine Appearance Urine pH Ur Specific Blanchard Urine Protein Urine Glucose (UA) Urine Ketones Urine Blood Urine Nitrite Urine Bilirubin Urine Urobilinogen Ur Leukocyte Esterase Urine WBC (Auto) Urine RBC (Auto) U Hyaline Cast (Auto) U Epithel Cells (Auto) Urine Bacteria (Auto) Urine Osmolality Ur Random Sodium Urine Comment Ethyl Alcohol mg/dL PG Care Time/CCT Total # of Minutes Spent Total Time Spent with Patient: Total time spent is greater than 50% in coordination of care (as documented) at patient's floor/unit and/or counseling patient: Coding Level of Care Code 00249 INT INP/OBS CARE 2/55MIN Diagnoses Acute pancreatitis K85.90
[2025-02-06] MEDS: PIPERACILLIN/TAZOBACTAM 4.5 GM/100 ML BAG IV ONE (10:45)
--- NOTE | 2025-02-06 14:41 | Hospitalist Progress Note ---
Date of Service February 06, 2025 Assessment & Plan (1) Acute pancreatitis: (2) Hyponatremia: (3) Hypokalemia: Plan 44-year-old male PMHx daily alcohol use, GERD, HLD and recent dx of pancreatitis the day of arrival at the [facility] who presents for abdominal pain, desiring admission to [facility] for management of such. #Acute Pancreatitis Symptoms of abdominal pain, started 3 days [employer]. 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 No h/o withdrawal. CBC/BMP stable LFTs WNL. Lipase 1621 on admission. CTAP outpatient: subtle inflammation around pancreas, dilation of pancreatic duct, significantly dilated @ head, no obstructing stone visualized. MRCP: dilated entire length of main pancreatic duct w/ few ductal calculi near head region & associated mild pancreatic parenchymal atrophy. Features of chronic pancreatitis. CBD dilated w/ distal smooth tapering & bilobar mild intrahepatic biliary ductal dilatation. No evidence of calculi seen - possible CBD benign stricture. Suggest ERCP. mild bernarda stranding @ level of distal pancreatic body & pancreatic tail lesion GI consulted -> continue NPO status + fluid hydration. Monitor LFTs. No emergent plans for ERCP @ this time. Continue IV Zosyn Dilaudid prn for pain. #Hyponatremia - resolved Likely secondary to decreased intake. Na 135 on admission w/ improvement to 137 following IVF Continue to monitor on daily BMP #Hypokalemia - resolved Asymptomatic currently. K 3.2 on admission s/p repletion w/ improvement to 4.0 #HTN- Carvedilol, losartan - continue #GERD- Omeprazole - continue #Opioid use disorder- Suboxone TID - continue #Pulm- Breyna or formulary equivalent - continue Dispo: Admit, med/sx VTE Prophylaxis: SCDs Discussed w/ GI 02/06 Admission and Anticipated Discharge Date Admission Date: February 06, 2025 Subjective Micha seen & examined this morning. Reports he is still experiencing epigastric abdominal pain. He does feel it may be improving slightly. Reports when he took his PO medications the pain worsened. He does not feel he is ready for clear liquid diet yet. Physical Exam Constitutional: WD/WN, vitals as above Eyes: PERRL, conjunctivae normal, anicteric sclerae Neck: normal visual inspection Respiratory: normal respiratory effort Gastrointestinal (Abdomen): +bowel sounds. soft. tenderness to palpa tion in epigastric/RUQ region Skin: no rashes, warm and dry Psychiatric: A+Ox3, euthymic affect Results & Data Results & Data Vital Signs (Past 12 Hours) Vital Signs Temp Pulse Pulse Resp BP BP BP 02/06/25 12:10 54 L 160/98 H 02/06/25 10:41 66 173/100 H 02/06/25 09:15 59 L 193/104 H 201/88 H 02/06/25 07:11 36.7 C 55 L 16 175/96 H 02/06/25 05:33 36.9 C 58 L 16 178/90 H 02/06/25 05:00 153/96 H 02/06/25 04:30 78 22 146/91 H 02/06/25 04:00 84 18 144/86 H 02/06/25 03:30 68 15 02/06/25 03:00 76 19 150/87 H Pulse Ox O2 Del Method 02/06/25 12:10 02/06/25 10:41 02/06/25 09:15 02/06/25 07:11 97 Room Air 02/06/25 05:33 100 Room Air 02/06/25 05:00 02/06/25 04:30 97 Room Air 02/06/25 04:00 98 Room Air 02/06/25 03:30 96 02/06/25 03:00 99 Room Air PG Care Time/CCT Total # of Minutes Spent Total Time Spent with Patient: Total time spent is greater than 50% in coordination of care (as documented) at patient's floor/unit and/or counseling patient: Coding Level of Care Code None Diagnoses Acute pancreatitis K85.90 Hyponatremia E87.1 Hypokalemia E87.6
[2025-02-06] MEDS: PIPERACILLIN/TAZOBACTAM 4.5 GM/100 ML BAG IV SCH (16:20)
--- NOTE | 2025-02-06 18:38 | Electrocardiogram Report ---
Test Reason : Blood Pressure : */* mmHG Vent. Rate : 61 BPM Atrial Rate : 61 BPM P-R Int : 122 ms QRS Dur : 84 ms QT Int : 424 ms P-R-T Axes : 67 78 51 degrees QTcB Int : 426 ms Normal sinus rhythm Normal ECG No previous ECGs available Confirmed by Jose Alejandro Veloz ([id number]) on 02/06/2025 6:38:26 PM Referred By: REFERRED SELF Confirmed By: Jose Alejandro Veloz
[2025-02-07 06:10] LABS: Hematocrit (blood only) 29.4 % (42.0-52.0); Hemoglobin 10.3 g/dl (14.0-18.0); Mean Corpuscular Hemoglobin 32.7 pg (25.0-34.0); Mean Corpuscular Volume 93.3 fL (80.0-100.0); Platelet Count 205 K/uL (130-400); RDW Standard Deviation 37.5 fL (36.4-46.3); Red Blood Count 3.15 M/uL (4.70-6.10); White Blood Count 5.55 K/ul (4.8-10.8)
[2025-02-07 06:33] LABS: Alanine Aminotransferase 9.0 U/L (7-52); Alkaline Phosphatase 82.0 U/L (34-104); Anion Gap 9.0 (3-11); Bilirubin,Total 0.9 mg/dl (0.2-1.0); Blood Urea Nitrogen 8.0 mg/dl (6-23); Calcium 8.6 mg/dl (8.6-10.3); Carbon Dioxide 26.0 mmol/L (21-32); Chloride 101.0 mmol/L (98-107); Creatinine Clr Calc Pharmacy 107.8 ml/min; Glucose 66.0 mg/dl (70-99(Fasting)); Potassium 4.0 mmol/L (3.5-5.1); Sodium 136.0 mmol/L (136-145); Total Protein 5.6 gm/dl (6.0-8.3)
--- NOTE | 2025-02-07 12:14 | Gastroenterology Progress Note ---
Date of Service February 07, 2025 Assessment & Plan (1) Acute pancreatitis: (2) Chronic pancreatitis: Plan -Advance to liquid diet -Pain management per primary team -Continue to monitor LFTs -Alcohol cessation -Can implement pancreatic enzymes when tolerating a diet -No role for ERCP at the present time. Will need outpatient repeat imaging in 4- 6 weeks and possible EUS. Patient notes he has seen [facility] M [facility]k in the past as he lives in that area. Admission and Anticipated Discharge Date Admission Date: February 06, 2025 Supervising Physician Co-Signing Physician Notes I saw and examined this patient with our nurse practitioner and agree with her assessment and plan. Still with abdominal pain did not tolerate clear liquids well today. Abdomen soft minimal abdominal tenderness. Suspect ongoing acute on chronic pancreatitis flare. Can retry clear liquids. Ultimately will need repeat imaging to assess his pancreatic head and distal bile duct. Subjective Patient is a 44 yo male with alcoholic pancreatitis (acute on chronic). Patient is feeling somewhat better today. He notes that his blood pressure has been elevated overnight. Abdominal pain improving. LFTs remain unremarkable. He is currently consuming only sips of water per his reports. Review of Systems Constitutional: no fever and no chills Cardiovascular: no chest pain Gastrointestinal: no abdominal pain Psychiatric: no problem reported Physical Exam Constitutional: well developed Respiratory: normal respiratory effort Cardiovascular: Rate/Rhythm: regular rate Gastrointestinal (Abdomen): normal bowel sounds, soft, nontender, no hepatosplenomegaly Psychiatric: Orientation: alert and oriented x 3 Results & Data Results & Data Vital Signs (Past 12 Hours) Vital Signs Temp Pulse Resp BP BP Pulse Ox O2 Del Method 02/07/25 06:58 37.0 C 72 16 167/97 H 100 Room Air 02/07/25 04:37 62 145/79 H 02/07/25 04:01 195/111 H PG Care Time/CCT Total # of Minutes Spent Total Time Spent with Patient: Total time spent is greater than 50% in coordination of care (as documented) at patient's floor/unit and/or counseling patient: Coding Level of Care Code 47909 SUB INP/OBS CARE 2/35MIN Diagnoses Acute pancreatitis K85.90 Acute pancreatitis complication: unspecified Pancreatitis type: unspecified pancreatitis type Chronic pancreatitis K86.1 (1) Acute pancreatitis Acute pancreatitis complication: unspecified Pancreatitis type: unspecified pancreatitis type Qualified Code(s): K85.90 - Acute pancreatitis without necrosis or infection, unspecified
--- NOTE | 2025-02-07 15:37 | Hospitalist Progress Note ---
Date of Service February 07, 2025 Assessment & Plan (1) Acute pancreatitis: (2) Hyponatremia: (3) Hypokalemia: Plan 44-year-old male PMHx daily alcohol use, GERD, HLD and recent dx of pancreatitis the day of arrival at the [facility] who presents for abdominal pain, desiring admission to [facility] for management of such. #Acute Pancreatitis Symptoms of abdominal pain, started 3 days [employer]IVITY THER[employer]IST. 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 No h/o withdrawal. CBC/BMP stable LFTs WNL. Lipase 1621 on admission. CTAP outpatient: subtle inflammation around pancreas, dilation of pancreatic duct, significantly dilated @ head, no obstructing stone visualized. MRCP: dilated entire length of main pancreatic duct w/ few ductal calculi near head region & associated mild pancreatic parenchymal atrophy. Features of chronic pancreatitis. CBD dilated w/ distal smooth tapering & bilobar mild intrahepatic biliary ductal dilatation. No evidence of calculi seen - possible CBD benign stricture. Suggest ERCP. mild bernarda stranding @ level of distal pancreatic body & pancreatic tail lesion GI consulted -> continue fluid hydration. Monitor LFTs. No emergent plans for ERCP @ this time. Continue IV Zosyn Diet advanced to clears but patient reported severe pain following diet & downgraded back to NPO status. 02/07 Dilaudid prn for pain. Zofran prn N/V #HTN On Carvedilol Losartan outpatient - continued Remains significantly hypertensive but error on cautious side when treating given pain Hydralazine 5mg q6h prn added --> give if SBP > 185 or DBP > 100 #Alcohol use Per patient he has not been drinking for few days prior to hospital stay Averages ~3-5 beers per night AWSS + Ativan prn added in event he enters withdrawal. #Hyponatremia - resolved Likely secondary to decreased intake. Continue to monitor on daily BMP #Hypokalemia - resolved Likely secondary to decreased intake Continue to monitor BMP daily & replete prn #GERD- Omeprazole - continue #Opioid use disorder- Suboxone TID - continue #Pulm- Breyna or formulary equivalent - continue Dispo: Admit, med/sx VTE Prophylaxis: SCDs Admission and Anticipated Discharge Date Admission Date: February 06, 2025 Subjective Micha seen and examined this morning. He felt he was doing better today. Reports his pain is controlled with prn pain medication. He trialed a clear liquid diet & nursing informed me he had severe pain following the liquid intake. Physical Exam Constitutional: WD/WN, vitals as above Eyes: PERRL, conjunctivae normal, anicteric sclerae Respiratory: normal respiratory effort Gastrointestinal (Abdomen): +BS, mild tenderness to palpation of RUQ /epigastric region. Soft Psychiatric: A+Ox3, euthymic affect Results & Data Results & Data Vital Signs (Past 12 Hours) Vital Signs Temp Pulse Resp BP BP Pulse Ox O2 Del Method 02/07/25 15:23 36.7 C 61 16 184/102 H 186/105 H 99 Room Air 02/07/25 06:58 37.0 C 72 16 167/97 H 100 Room Air 02/07/25 04:37 62 145/79 H 02/07/25 04:01 195/111 H PG Care Time/CCT Total # of Minutes Spent Total Time Spent with Patient: Total time spent is greater than 50% in coordination of care (as documented) at patient's floor/unit and/or counseling patient: Coding Level of Care Code 80473 SUB INP/OBS CARE 3/50MIN Diagnoses Acute pancreatitis K85.90 Acute pancreatitis complication: unspecified Pancreatitis type: unspecified pancreatitis type Hyponatremia E87.1 Hypokalemia E87.6 (1) Acute pancreatitis Acute pancreatitis complication: unspecified Pancreatitis type: unspecified pancreatitis type Qualified Code(s): K85.90 - Acute pancreatitis without necrosis or infection, unspecified
[2025-02-08 07:04] LABS: Hematocrit (blood only) 30.6 % (42.0-52.0); Hemoglobin 10.4 g/dl (14.0-18.0); Mean Corpuscular Hemoglobin 31.7 pg (25.0-34.0); Mean Corpuscular Volume 93.3 fL (80.0-100.0); Platelet Count 222 K/uL (130-400); RDW Standard Deviation 37.7 fL (36.4-46.3); Red Blood Count 3.28 M/uL (4.70-6.10); White Blood Count 4.12 K/ul (4.8-10.8)
[2025-02-08 07:27] LABS: Alanine Aminotransferase 19.0 U/L (7-52); Albumin Globulin Ratio 1.3 (0.9-2); Alkaline Phosphatase 97.0 U/L (34-104); Anion Gap 7.0 (3-11); Bilirubin,Total 2.3 mg/dl (0.2-1.0); Blood Urea Nitrogen 6.0 mg/dl (6-23); Calcium 8.7 mg/dl (8.6-10.3); Carbon Dioxide 29.0 mmol/L (21-32); Chloride 101.0 mmol/L (98-107); Creatinine Clr Calc Pharmacy 96.2 ml/min; Globulin 2.4 gm/dl (2.5-4.0); Glucose 92.0 mg/dl (70-99(Fasting)); Magnesium 1.9 mg/dl (1.7-2.4); Potassium 3.6 mmol/L (3.5-5.1); Sodium 137.0 mmol/L (136-145); Total Protein 5.6 gm/dl (6.0-8.3)
--- NOTE | 2025-02-08 10:09 | Gastroenterology Progress Note ---
Date of Service February 08, 2025 Assessment & Plan (1) Chronic pancreatitis: Plan: Continued issues with pain related to his pancreatitis. Would continue as we are doing. No need for emergent ERCP at this time related to isolate hyperbilirubinemia. ERCP will not be available for the next week so if the need arises will need transfer. For now it is not needed and I would just treat his acute on chronic pancreatitis. Admission and Anticipated Discharge Date Admission Date: February 06, 2025 Subjective Patient was doing great until clear liquid breakfast and after drinking OJ his pain worsened. Bilirubin ling over night to 2.3 Physical Exam Physical Exam: He looks well Constitutional: WD/WN, vitals as above Results & Data Vital Signs (Past 12 Hours) Vital Signs Temp Pulse Resp BP Pulse Ox O2 Del Method 02/08/25 09:45 182/95 H 02/08/25 07:22 36.6 C 61 16 181/112 H 97 Room Air
--- NOTE | 2025-02-08 15:00 | Hospitalist Progress Note ---
Date of Service February 08, 2025 Assessment & Plan (1) Acute pancreatitis: (2) Hyponatremia: (3) Hypokalemia: Plan 44-year-old male PMHx daily alcohol use, GERD, HLD and recent dx of pancreatitis the day of arrival at the [facility] who presents for abdominal pain, desiring admission to [facility] for management of such. 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 No h/o withdrawal. CBC/BMP stable LFTs w/ bump of TB to 2.3. Lipase 1621 on admission. CTAP outpatient: subtle inflammation around pancreas, dilation of pancreatic duct, significantly dilated @ head, no obstructing stone visualized. MRCP: dilated entire length of main pancreatic duct w/ few ductal calculi near head region & associated mild pancreatic parenchymal atrophy. Features of chronic pancreatitis. CBD dilated w/ distal smooth tapering & bilobar mild intrahepatic biliary ductal dilatation. No evidence of calculi seen - possible CBD benign stricture. Suggest ERCP. mild bernarda stranding @ level of distal pancreatic body & pancreatic tail lesion GI consulted -> continue fluid hydration. Monitor LFTs. No emergent plans for ERCP @ this time. Continue IV Zosyn Tolerating clear liquids, advance to low fat diet as tolerated. Dilaudid prn for pain. Zofran prn N/V #HTN On Carvedilol Losartan outpatient - continued Remains significantly hypertensive but error on cautious side when treating given pain Hydralazine 5mg q6h prn added --> give if SBP > 185 or DBP > 100 #Alcohol use Per patient he has not been drinking for few days prior to hospital stay Averages ~3-5 beers per night AWSS + Ativan prn added in event he enters withdrawal. #Hyponatremia - resolved Likely secondary to decreased intake. Continue to monitor on daily BMP #Hypokalemia - resolved Likely secondary to decreased intake Continue to monitor BMP daily & replete prn #GERD- Omeprazole - continue #Opioid use disorder- Suboxone TID - continue #Pulm- Breyna or formulary equivalent - continue Dispo: Admit, med/sx VTE Prophylaxis: SCDs Admission and Anticipated Discharge Date Admission Date: February 06, 2025 Koko Micha seen and examined this afternoon. States his diet went well for lunch. States this morning he had pain related to orange juice & did require a dose of pain medication. Since then he states his pain has been about a 2/10. Denies nausea/vomiting. States he had a bm. Physical Exam Constitutional: WD/WN, vitals as above Respiratory: normal respiratory effort Gastrointestinal (Abdomen): +bowel sounds. mild tenderness to palpat ion in RUQ/epigatric region. Psychiatric: A+Ox3, euthymic affect Results & Data Results & Data Vital Signs (Past 12 Hours) Vital Signs Temp Pulse Resp BP Pulse Ox O2 Del Method 02/08/25 14:48 36.9 C 62 16 158/90 H 97 Room Air 02/08/25 11:00 152/90 H 02/08/25 09:45 182/95 H 02/08/25 07:22 36.6 C 61 16 181/112 H 97 Room Air PG Care Time/CCT Total # of Minutes Spent Total Time Spent with Patient: Total time spent is greater than 50% in coordination of care (as documented) at patient's floor/unit and/or counseling patient: Coding Level of Care Code 47595 SUB INP/OBS CARE 2/35MIN Diagnoses Acute pancreatitis K85.90 Acute pancreatitis complication: unspecified Pancreatitis type: unspecified pancreatitis type Hyponatremia E87.1 Hypokalemia E87.6 (1) Acute pancreatitis Acute pancreatitis complication: unspecified Pancreatitis type: unspecified pancreatitis type Qualified Code(s): K85.90 - Acute pancreatitis without necrosis or infection, unspecified
[2025-02-08] MEDS: ONDANSETRON INJ 2 MG/ML 2 ML VIAL IV PRN (19:39)
[2025-02-08] MEDS: HYDROmorphone INJ 1 MG/ML SYRINGE IV STA ×2 (21:08→23:42)
--- NOTE | 2025-02-09 03:14 | CT Scan Report ---
Exam(s): CT ABDOMEN + PELVIS Without Contrast EXAM: CT Abdomen and Pelvis Without Intravenous Contrast CLINICAL HISTORY: Reason for exam: worsening abd pain in setting of pancreatitis. TECHNIQUE: Axial computed tomography images of the abdomen and pelvis without intravenous contrast. CTDI is 13.09 mGy and DLP is 612.35 mGy-cm. Automated exposure control was utilized for the study. A dose lowering technique was utilized adhering to the principles of ALARA. COMPARISON: CT abdomen/pelvis on 02/05/2025. MRCP on 02/06/2025. FINDINGS: Lung bases: Dependent atelectasis bilaterally. Pleural space: New small swgj-lsxgapk-kucx-right pleural effusions. ABDOMEN: Liver: Unremarkable. Gallbladder and bile ducts: Probable vicarious excretion of contrast in the gallbladder. No calcified stones. No ductal dilation. Pancreas: Mild fat stranding along the pancreas, suggesting acute pancreatitis. Persistent mild prominence of the pancreatic duct. Spleen: Unremarkable. No splenomegaly. Adrenals: Unremarkable. No mass. Kidneys and ureters: Unremarkable. No obstructing stones. No hydronephrosis. Stomach and bowel: Evaluation of the stomach is limited by underdistention. No mucosal thickening. No bowel obstruction or inflammation. PELVIS: Appendix: Normal appendix. Bladder: Prominence of the bladder wall is nonspecific. Please correlate with urinalysis to evaluate for cystitis. No stones. Reproductive: Mild calcifications in the prostate. ABDOMEN and PELVIS: Intraperitoneal space: Small amount of fluid in the posterior pelvis. No free air. Bones/joints: Mild degenerative changes of the spine. No acute fracture. No dislocation. Soft tissues: Bilateral fat containing inguinal hernias. Small fat containing umbilical hernia. Vasculature: Mild atherosclerotic changes of the vasculature. No abdominal aortic aneurysm. Lymph nodes: Unremarkable. No enlarged lymph nodes. IMPRESSION: 1. Mild fat stranding along the pancreas, suggesting acute pancreatitis. Persistent mild prominence of the pancreatic duct. 2. Prominence of the bladder wall is nonspecific. Please correlate with urinalysis to evaluate for cystitis. 3. New small xwzc-[id number]-mavz-right pleural effusions. Electronically signed by: Td Yun M.D. 02/09/25 03:13 AM
[2025-02-09 06:46] LABS: Hematocrit (blood only) 35.0 % (42.0-52.0); Hemoglobin 11.8 g/dl (14.0-18.0); Immature Granulocytes # (auto) 0.02 K/uL (0.01-0.20); Immature Granulocytes % (auto) 0.3 %; Mean Corpuscular Hemoglobin 31.4 pg (25.0-34.0); Mean Corpuscular Volume 93.1 fL (80.0-100.0); Platelet Count 286 K/uL (130-400); RDW Standard Deviation 37.8 fL (36.4-46.3); Red Blood Count 3.76 M/uL (4.70-6.10); White Blood Count 7.14 K/ul (4.8-10.8)
[2025-02-09 07:03] LABS: Alanine Aminotransferase 51.0 U/L (7-52); Albumin Globulin Ratio 1.4 (0.9-2); Alkaline Phosphatase 145.0 U/L (34-104); Anion Gap 10.0 (3-11); Bilirubin,Total 3.9 mg/dl (0.2-1.0); Blood Urea Nitrogen 4.0 mg/dl (6-23); Calcium 8.5 mg/dl (8.6-10.3); Carbon Dioxide 26.0 mmol/L (21-32); Chloride 94.0 mmol/L (98-107); Creatinine Clr Calc Pharmacy 113.2 ml/min; Globulin 2.5 gm/dl (2.5-4.0); Glucose 104.0 mg/dl (70-99(Fasting)); Lipase 254.0 U/L (11-82); Potassium 3.6 mmol/L (3.5-5.1); Sodium 130.0 mmol/L (136-145); Total Protein 5.9 gm/dl (6.0-8.3)
--- NOTE | 2025-02-09 10:02 | Gastroenterology Progress Note ---
Date of Service February 09, 2025 Assessment & Plan (1) Chronic pancreatitis: Plan: Chronic pancreatitis is basically a pain management issue. He can eat what he can tolerate. Rise in bilirubin without a significant rise in LFT's not really a concern right now. I understand the hospital in [place] "confirmed a stone" but MRCP here does not. ERCP would have to be done at another hospital at this point anyway. Creon could be considered but using enzymes for feedback pain control is not really successful. Admission and Anticipated Discharge Date Admission Date: February 06, 2025 Subjective Pain waxing and waning. Trying regular diet. Bilirubin up a little more Physical Exam Physical Exam: Icteric but otherwise looks okay Constitutional: WD/WN, vitals as above Results & Data Vital Signs (Past 12 Hours) Vital Signs Temp Pulse Pulse Resp BP BP Pulse Ox 02/09/25 07:57 73 02/09/25 07:44 36.6 C 74 18 176/97 H 98 02/09/25 03:18 71 174/88 H 02/09/25 01:23 78 02/09/25 01:18 36.6 C 77 22 188/101 H 99 02/09/25 01:03 36.9 C 78 18 176/97 H 100 02/08/25 23:20 70 203/110 H 02/08/25 23:01 70 210/105 H O2 Del Method 02/09/25 07:57 02/09/25 07:44 Room Air 02/09/25 03:18 02/09/25 01:23 02/09/25 01:18 Room Air 02/09/25 01:03 Room Air 02/08/25 23:20 02/08/25 23:01
--- NOTE | 2025-02-09 12:27 | Hospitalist Progress Note ---
Date of Service February 09, 2025 Assessment & Plan (1) Acute pancreatitis: (2) Hyponatremia: (3) Hypokalemia: Plan 44-year-old male PMHx daily alcohol use, GERD, HLD and recent dx of pancreatitis the day of arrival at the [facility] who presents for abdominal pain, desiring admission to [facility] for management of such. 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 No h/o withdrawal. CBC/BMP stable LFTs w/ bump of TB to 3.9, DB 2.7, AST 95, AP 145 --> repeat LFTs around 1400 to reassess trend Lipase 1621 on admission now 254; CRP 2.72 CTAP outpatient: subtle inflammation around pancreas, dilation of pancreatic duct, significantly dilated @ head, no obstructing stone visualized. MRCP: dilated entire length of main pancreatic duct w/ few ductal calculi near head region & associated mild pancreatic parenchymal atrophy. Features of chronic pancreatitis. CBD dilated w/ distal smooth tapering & bilobar mild intrahepatic biliary ductal dilatation. No evidence of calculi seen - possible CBD benign stricture. Suggest ERCP. mild bernarda stranding @ level of distal pancreatic body & pancreatic tail lesion GI consulted -> continue fluid hydration. Monitor LFTs. No emergent plans for ERCP @ this time. Discussed w/ GI on 02/09 - rise in TB w/o significant rise in LFTs is not concern at this time. Continue to monitor. Consider Creon but feedback pain control is not successful. Continue IV Zosyn Tolerating clear liquids, advance to low fat diet as tolerated. Dilaudid prn for pain. Zofran prn N/V #HTN On Carvedilol Losartan outpatient - continued Remains significantly hypertensive but error on cautious side when treating given pain Hydralazine 5mg q6h prn added --> give if SBP > 185 or DBP > 100 #Alcohol use Per patient he has not been drinking for few days prior to hospital stay Averages ~3-5 beers per night AWSS + Ativan prn added in event he enters withdrawal. #Hyponatremia - resolved Likely secondary to decreased intake. Continue to monitor on daily BMP #Hypokalemia - resolved Likely secondary to decreased intake Continue to monitor BMP daily & replete prn #GERD- Omeprazole - continue #Opioid use disorder- Suboxone TID - continue #Pulm- Breyna or formulary equivalent - continue Dispo: Admit, med/sx VTE Prophylaxis: SCDs Admission and Anticipated Discharge Date Admission Date: February 06, 2025 Subjective Micha seen & examined this morning. He reports he has had severe pain since yesterday evening when attempting solid foods. States the pain has migrated to his lower abdomen as well. Denies N/V. States he has not tried to eat today thus far. Physical Exam Constitutional: WD/WN, vitals as above Eyes: PERRL, conjunctivae normal, anicteric sclerae Neck: normal visual inspection Respiratory: normal respiratory effort Gastrointestinal (Abdomen): +generalized abdominal tenderness to pal pation Skin: no rashes, warm and dry Psychiatric: A+Ox3, euthymic affect Results & Data Results & Data Vital Signs (Past 12 Hours) Vital Signs Temp Pulse Pulse Resp BP BP Pulse Ox 02/09/25 11:58 36.6 C 65 18 190/106 H 98 02/09/25 07:57 73 02/09/25 07:44 36.6 C 74 18 176/97 H 98 02/09/25 03:18 71 174/88 H 02/09/25 01:23 78 02/09/25 01:18 36.6 C 77 22 188/101 H 99 02/09/25 01:03 36.9 C 78 18 176/97 H 100 O2 Del Method 02/09/25 11:58 Room Air 02/09/25 07:57 02/09/25 07:44 Room Air 02/09/25 03:18 02/09/25 01:23 02/09/25 01:18 Room Air 02/09/25 01:03 Room Air PG Care Time/CCT Total # of Minutes Spent Total Time Spent with Patient: Total time spent is greater than 50% in coordination of care (as documented) at patient's floor/unit and/or counseling patient: Coding Level of Care Code 44283 SUB INP/OBS CARE 3/50MIN Diagnoses Acute pancreatitis K85.90 Acute pancreatitis complication: unspecified Pancreatitis type: unspecified pancreatitis type Hyponatremia E87.1 Hypokalemia E87.6 (1) Acute pancreatitis Acute pancreatitis complication: unspecified Pancreatitis type: unspecified pancreatitis type Qualified Code(s): K85.90 - Acute pancreatitis without necrosis or infection, unspecified
[2025-02-09 14:47] LABS: Bilirubin,Total 5.0 mg/dl (0.2-1.0)
[2025-02-09 14:52] LABS: Alanine Aminotransferase 68.0 U/L (7-52); Alkaline Phosphatase 184.0 U/L (34-104); Total Protein 6.5 gm/dl (6.0-8.3)
[2025-02-10 09:37] LABS: Hematocrit (blood only) 31.9 % (42.0-52.0); Hemoglobin 10.9 g/dl (14.0-18.0); Immature Granulocytes # (auto) 0.02 K/uL (0.01-0.20); Immature Granulocytes % (auto) 0.3 %; Mean Corpuscular Hemoglobin 31.6 pg (25.0-34.0); Mean Corpuscular Volume 92.5 fL (80.0-100.0); Platelet Count 248 K/uL (130-400); RDW Standard Deviation 39.4 fL (36.4-46.3); Red Blood Count 3.45 M/uL (4.70-6.10); White Blood Count 6.26 K/ul (4.8-10.8)
[2025-02-10 09:51] LABS: Alanine Aminotransferase 78.0 U/L (7-52); Albumin Globulin Ratio 1.2 (0.9-2); Alkaline Phosphatase 216.0 U/L (34-104); Anion Gap 8.0 (3-11); Bilirubin,Total 3.8 mg/dl (0.2-1.0); Blood Urea Nitrogen 7.0 mg/dl (6-23); Calcium 8.4 mg/dl (8.6-10.3); Carbon Dioxide 28.0 mmol/L (21-32); Chloride 96.0 mmol/L (98-107); Creatinine Clr Calc Pharmacy 105.3 ml/min; Globulin 2.7 gm/dl (2.5-4.0); Glucose 111.0 mg/dl (70-99(Fasting)); Potassium 3.4 mmol/L (3.5-5.1); Sodium 132.0 mmol/L (136-145); Total Protein 5.9 gm/dl (6.0-8.3)
--- NOTE | 2025-02-10 10:55 | Hospitalist Progress Note ---
Date of Service February 10, 2025 Assessment & Plan (1) Acute pancreatitis: (2) Hyponatremia: (3) Hypokalemia: Plan 44-year-old male PMHx daily alcohol use, GERD, HLD and recent dx of pancreatitis the day of arrival at the [facility] who presents for abdominal pain, desiring admission to [facility] for management of such. 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 No h/o withdrawal. Patient denies prior episodes of pancreatitis CBC/BMP stable LFTs w/ bump of total bilirubin (peak 5.0) Lipase 1621 on admission Lipase trend: 375 -> 254 -> 88 CTAP outpatient: subtle inflammation around pancreas, dilation of pancreatic duct, significantly dilated @ head, no obstructing stone visualized. MRCP: dilated entire length of main pancreatic duct w/ few ductal calculi near head region & associated mild pancreatic parenchymal atrophy. Features of chronic pancreatitis. CBD dilated w/ distal smooth tapering & bilobar mild intrahepatic biliary ductal dilatation. No evidence of calculi seen - possible CBD benign stricture. Suggested ERCP. mild fat stranding @ level of distal pancreatic body & pancreatic tail lesion GI consulted Continue fluid hydration. Monitor LFTs. No emergent plans for ERCP @ this giulia e Plan for OP EUS in 4-6 weeks once inflammation subsides Discussed w/ GI on 02/09 - rise in total bilirubin w/o significant rise in LFTs is not concern at this time. Continue to monitor. Consider Creon but feedback pain control is not successful. Abdominal ultrasound ordered on 02/10, pending N.p.o. prior to procedure then advance to full liquid diet If tolerating, can hopefully advance to low-fat diet on 02/11 Continue IV Zosyn Dilaudid PRN for pain Zofran PRN for N/V #HTN On Carvedilol Losartan outpatient - continued Remains significantly hypertensive but error on cautious side when treating given pain Hydralazine 5mg q6h prn added --> give if SBP > 185 or DBP > 100 #Alcohol use Per patient he has not been drinking for few days prior to hospitalization However, on average he drinks 3-4 beers per night AWSS + Ativan as needed for alcohol withdrawal at risk protocol #Hyponatremia - resolved Mild; likely secondary to decreased intake Continue to monitor on daily BMP #Hypokalemia - resolved Mild; likely secondary to decreased intake Continue to monitor BMP daily & replete #GERD- Omeprazole - continue #Opioid use disorder- Suboxone TID - continue #Pulm- Breyna or formulary equivalent - continue Dispo: Continued stay on MedSurg VTE Prophylaxis: SCDs Admission and Anticipated Discharge Date Admission Date: February 06, 2025 Supervising Physician Co-Signing Physician Notes The patient was not seen by me. The chart was reviewed. Case discussed with CARLOS Wilson. Agree with assessment and plan Subjective Mr. Pandya is happy to report that he slept much better last night when compared to the night prior. He is not experiencing any pain while he sits at rest, but does rate a constant 2/10 discomfort in the epigastric region. It is only when he palpates his stomach, or leans forward and that the pain comes on sharply. Patient did not tolerate solids the day prior, and reports that this significantly exacerbated his pain; there was sharp stabbing pain at this time. No radiation to the back. He did tolerate a full liquid diet this morning of green tea and yogurt. Patient also had a BM the day before yesterday. In regard to alcohol use, he does endorse drinking 3-4 beers after work daily; the last time he took a break was 1.5 weeks ago. No prior history of gallstones. ROS: Patient endorses epigastric pain with movements and palpation. Patient denies fever, chills, night sweats, dizziness/lightheadedness with walking, chest pain, SOB, pleuritic CP, cough, N/V/C, changes in urinary or bowel habits, or blood in the urine or stool. Review of Systems Review of Systems: See HPI above Physical Exam Physical Exam: General: no acute distress; pleasant affect; family at bedside; non-toxic appearing; well-nourished; cooperative; SpO2 97% on RA HEENT: normocephalic, atraumatic; no scleral icterus; PERRLA; vision and hearing grossly intact Neck: supple; trachea midline Skin: warm, dry without signs of tenting; no cyanosis; no rashes, bruising, lesions, or erythema noted CV: chest wall NTP; RRR; S1/S2 normal; no murmurs/rubs/gallops; pulses intact and symmetric at radial, DP, and PT Lungs: no acute respiratory distress; symmetrical chest wall expansion; clear breath sounds across all lung chung w/o adventitious sounds; no wheezing ABD: Soft; epigastric region and right upper quadrant are tender to palpation; no rashes or bruising on abdomen or flanks bilaterally; BS present; no rebound/guarding; no distention Back: Negative CVA tenderness bilaterally MSK: no tics or fasciculations; no edema noted in the LEs b/l, nonerythematous Neuro: A&Ox3; normal mood and affect; fluent speech; no focal deficits; sensation intact metric in all EXTR bilaterally Results & Data Results & Data Vital Signs (Past 12 Hours) Vital Signs Temp Pulse Pulse Resp BP Pulse Ox O2 Del Method 02/10/25 07:55 36.7 C 71 20 134/77 97 Room Air 02/10/25 05:42 61 02/10/25 03:09 36.6 C 66 14 102/54 L 95 Room Air PG Care Time/CCT Total # of Minutes Spent Total Time Spent with Patient: Total time spent is greater than 50% in coordination of care (as documented) at patient's floor/unit and/or counseling patient: Coding [place] [address] SUB INP/OBS CARE 2/35MIN Patient Type Established Medical Decision Making Moderate Complexity Diagnoses Acute pancreatitis K85.90 Acute pancreatitis complication: unspecified Pancreatitis type: unspecified pancreatitis type Hyponatremia E87.1 Hypokalemia E87.6 (1) Acute pancreatitis Acute pancreatitis complication: unspecified Pancreatitis type: unspecified pancreatitis type Qualified Code(s): K85.90 - Acute pancreatitis without necr osis or infection, unspecified
--- NOTE | 2025-02-10 12:28 | Gastroenterology Progress Note ---
Date of Service February 10, 2025 Assessment & Plan (1) Acute pancreatitis: Plan: -Continue pain control -Due to worsening pain and increased bilirubin, plan for US abdomen today -Continue to trend LFTs -If persistent pain and worsening Bili, need to consider transfer for ERCP evaluation Admission and Anticipated Discharge Date Admission Date: February 06, 2025 Supervising Physician Co-Signing Physician Notes Seen and examined with ALYX Reyna. Treatment plan discussed and agree with assessment and plan. Abd: Soft, NT, ND, +BS Await results of RUQ US Further recommendations to follow. Subjective Patient is a 44 yo male with acute on chronic pancreatitis. He notes that over the weekend, he had advanced to a regular diet and had significant pain from that one meal. His diet was taken back to liquids, but he notes that since that time he has had worsening epigastric pain. His T bili is 5.0 today. Previous MRCP this admission did not identify any stones. Review of Systems Gastrointestinal: + abdominal pain Physical Exam Constitutional: well developed Respiratory: normal respiratory effort Gastrointestinal (Abdomen): Inspection/Auscultation: abdomen not distended Percussion/Palpation: + abdomen tender Psychiatric: Orientation: alert and oriented x 3 Results & Data Results & Data Vital Signs (Past 12 Hours) Vital Signs Temp Pulse Pulse Resp BP Pulse Ox O2 Del Method 02/10/25 11:36 36.5 C 67 20 129/75 95 Room Air 02/10/25 07:55 36.7 C 71 20 134/77 97 Room Air 02/10/25 05:42 61 02/10/25 03:09 36.6 C 66 14 102/54 L 95 Room Air PG Care Time/CCT Total # of Minutes Spent Total Time Spent with Patient: Total time spent is greater than 50% in coordination of care (as documented) at patient's floor/unit and/or counseling patient: Coding Level of Care Code 02945 SUB INP/OBS CARE 3/50MIN Diagnoses Acute pancreatitis K85.90 Acute pancreatitis complication: unspecified Pancreatitis type: unspecified pancreatitis type (1) Acute pancreatitis Acute pancreatitis complication: unspecified Pancreatitis type: unspecified pancreatitis type Qualified Code(s): K85.90 - Acute pancreatitis without necrosis or infection, unspecified
[2025-02-10] MEDS: POTASSIUM CHLORIDE / WTR 10 MEQ/100 ML PLCT IV ONE (17:52)
--- NOTE | 2025-02-10 19:42 | Ultrasound Report ---
EXAM: US abdomen limited CLINICAL HISTORY: Rising bilirubin. TECHNIQUE: Ultrasound examination of the RUQ was performed in real-time. COMPARISON: Prior CT abdomen and pelvis dated 02/08/2025 and MRCP : 02/06/2025 were reviewed. FINDINGS: Liver: Liver size: Liver appears normal in size (14.3 cm) with homogeneous echotexture. No evidence of focal lesions, cysts, or masses. Hepatic vasculature appears normal. Gallbladder: [id number] Gallbladder is distended, measuring 11.3 cm in length and harboring low-level echo content with thickened edematous wall (11 mm thick) and surrounding hyperemia /[id number].5.1.2 small fluid; acute cholecystitis./OBX.5.1.2/OBX.5.1 No gallstones noted. Biliary Tree: Common bile duct diameter: [7 mm]. The common bile duct is mildly dilated. The visualized pancreatic head shows an inhomogeneous hypoechoic texture. Right Kidney: The right kidney appears normal in size with preserved corticomedullary differentiation. No evidence of hydronephrosis, renal cysts, or masses. IMPRESSION: 1. Signs of acute muddy cholecystitis are as described. 2. Mildly dilated CBD correlates with the prior MRCP and bilirubin profile. Please refer to the dedicated report. 3. The visualized pancreatic head shows inhomogeneous hypoechoic texture; it needs serum amylase and lipase correlation. Electronically signed by Red Coronel 02-10-2025 7:41 PM
[2025-02-11 07:02] VITALS: RESP 20; TEMP 98.4
[2025-02-11 07:54] LABS: Alanine Aminotransferase 60.0 U/L (7-52); Albumin Globulin Ratio 1.2 (0.9-2); Alkaline Phosphatase 192.0 U/L (34-104); Anion Gap 7.0 (3-11); Bilirubin,Total 1.7 mg/dl (0.2-1.0); Blood Urea Nitrogen 7.0 mg/dl (6-23); Calcium 8.3 mg/dl (8.6-10.3); Carbon Dioxide 29.0 mmol/L (21-32); Chloride 99.0 mmol/L (98-107); Creatinine Clr Calc Pharmacy 111.8 ml/min; Globulin 2.6 gm/dl (2.5-4.0); Glucose 81.0 mg/dl (70-99(Fasting)); Lipase 90.0 U/L (11-82); Potassium 3.4 mmol/L (3.5-5.1); Sodium 135.0 mmol/L (136-145); Total Protein 5.7 gm/dl (6.0-8.3)
[2025-02-11] MEDS: POTASSIUM CHLORIDE CRTAB 20 MEQ TABCR PO STA (10:18)
--- NOTE | 2025-02-11 10:36 | Gastroenterology Progress Note ---
Date of Service February 11, 2025 Assessment & Plan (1) Acute pancreatitis: Plan Patient reports feeling better and tolerating diet. His t bili is improving. pain improved. he is questioning discharge. - would recommend cessation of alcohol use. - he should follow with his regular gastroenterology group at [facility] in [facility] on discharge. should consider outpatient ERCP to further evaluate MRI findings of possible CBD stricture. Admission and Anticipated Discharge Date Admission Date: February 06, 2025 Supervising Physician Co-Signing Physician Notes Agree with ALYX Calvillo as above Patient was discharged prior to my evaluation. Subjective Patient is a 44 year old male with acute on chronic pancreatitis. he tells me that he has been feeling better. Abdominal pain has improved. T bili dropped from 3.8 to 1.7. He tells me that he is tolerating diet and is questioning when he can be discharged. he has seen [facility] in the past for his GI care. US 02/10/25 Signs of acute muddy cholecystitis are as described. Mildly dilated CBD correlates with the prior MRCP and bilirubin profile. Please refer to the dedicated report. The visualized pancreatic head shows inhomogeneous hypoechoic texture; it needs serum amylase and lipase correlation. MRI 02/06/25 Dilated entire length of main pancreatic duct with few ductal calculi near head region and associated mild pancreatic parenchymal atrophy-- features of Chronic pancreatitis. No peripancreatic collection/cyst seen. Common bile duct is dilated with distal smooth tapering and bilobar mild intrahepatic biliary ductal dilatation. No evidence of calculi seen- Possible distal CBD benign stricture. Suggested ERCP correlation. Mild fat stranding is noted at the level of the distal pancreatic body and pancreatic tail region. Reactive thickening of the anterior renal fascia is noted on left side with mild perinephric fat stranding and fluid. Suggested serum amylase/lipase correlation for underlying acute over chronic pancreatitis changes. Review of Systems Review of Systems: All systems reviewed & are unremarkable except as noted in HPI & below Physical Exam Constitutional: WD/WN, vitals as above Respiratory: normal respiratory effort, lungs clear to auscultation Cardiovascular: Rate/Rhythm: regular rate and regular rhythm Gastrointestinal (Abdomen): normal bowel sounds, soft, nontender, no hepatosplenomegaly Psychiatric: Orientation: alert and oriented x 3 Affect: euthymic affect Results & Data Results & Data Vital Signs (Past 12 Hours) Vital Signs Temp Pulse Pulse Resp BP BP Pulse Ox 07/15/25 07:01 98.4 F 63 20 173/89 H 98 02/11/25 05:43 61 02/11/25 03:43 98.1 F 65 16 130/74 97 02/11/25 00:36 02/10/25 23:08 98.4 F 63 18 146/89 H 97 O2 Del Method 02/11/25 07:01 Room Air 02/11/25 05:43 02/11/25 03:43 Room Air 02/11/25 00:36 Room Air 02/10/25 23:08 Room Air Coding Level of Care Code 74650 SUB INP/OBS CARE 2/35MIN Diagnoses Acute pancreatitis K85.90 Acute pancreatitis complication: unspecified Pancreatitis type: unspecified pancreatitis type (1) Acute pancreatitis Acute pancreatitis complication: unspecified Pancreatitis type: unspecified pancreatitis type Qualified Code(s): K85.90 - Acute pancreatitis without necrosis or infection, unspecified
[2025-02-11 11:21] VITALS: O2SAT 96
--- NOTE | 2025-02-11 14:30 | Discharge Summary ---
Discharge Summary Date of Service February 11, 2025 Principal Dx & Hospital Course #1 = Principal Diagnosis (1) Acute pancreatitis: (2) Hyponatremia: (3) Hypokalemia: Plan #Acute Pancreatitis 44-year-old male PMHx daily alcohol use (3-4 beers nightly), GERD, HLD and recent dx of pancreatitis the day of arrival at the [facility] who presents for abdominal pain, desiring admission to [facility] for management of such. Lipase 1621 on admission but has improved. LFTs have also improved. MRCP: dilated entire length of main pancreatic duct w/ few ductal calculi near head region & associated mild pancreatic parenchymal atrophy. Features of chronic pancreatitis. CBD dilated w/ distal smooth tapering & bilobar mild intrahepatic biliary ductal dilatation. No evidence of calculi seen - possible CBD benign stricture. CT A/P - mild fat stranding along the pancreatis. Abdominal US - acute cholecytitis, with mildly dilated CBD correlated with MRCP. Suggested ERCP. mild fat stranding @ level of distal pancreatic body & pancreatic tail lesion. GI consulted - pain and labs improving, no emergent plans for ERCP @ this time. Plan for OP EUS in 4-6 weeks once inflammation subsides - follows with [facility]. Continue low fat diet while symptoms improve. #HTN - Carvedilol Losartan outpatient - continued #Alcohol use - Per patient he has not been drinking for few days prior to hospitalization, However, on average he drinks 3-4 beers per night. Did not require and PRN ativan. Recommend EOTH cessation. #Hyponatremia - resolved #Hypokalemia - resolved #GERD- Omeprazole - continue #Opioid use disorder- Suboxone TID - continue #Pulm- Breyna or formulary equivalent - continue Dispo: discharge to home today, outpatient GI follow up Notes For Next Care Provider Medication Changes From Visit none Admission HPI Per Admitting Provider 44-year-old male PMHx daily alcohol use, GERD, HLD and recent dx of pancreatitis the day of arrival at the [facility] who presents for abdominal pain, desiring admission to [facility] for management of such. 3 days [employer] he started to have RUQ abdominal pain that started in the mid morning. He states that he has had this pain in the past and after resting it normally will go away however it did not at this time. The following day he woke up and still had RUQ abdominal pain, stating that he just felt he was in his upper abdomen and moved more towards the center. He took his blood pressure medications that morning and had an episode of nausea with vomiting. He was unable to eat much and believes this is why he threw up. He did have a bowel movement. And approximate 2 hours later the pain had resolved. He states that he normally drinks water and green tea throughout the day but this was causing him some abdominal pain. He did try to eat chicken noodle soup but the pain became significantly worse after doing so. On the day of arrival, he states that his pain was "excruciating", rating it a 7-8 out of 10 on the pain scale at its worst, so he decided to come to the ED. His current pain is a 5 out of 10 on the pain scale and he is not having an y nausea or vomiting. States he has never had this happen before. Patient states that he drinks approximately 2-4 beers per night, every night. He has never had pancreatitis in the past, but that he has had the symptoms occur in the past. Overall patient denies chest pain, SOB, palpitations, diarrhea/constipation, numbness/tingling, fever/chills, URI symptoms, LUTS, weakness, or syncope. Patient takes his medications as prescribed. At [facility], he was diagnosed with pancreatitis and there was concern for pancreatic ductal dilatation. Pt was to be transferred to [facility] for ERCP, however after an extended period of waiting, he decided to leave [place] and come to [facility]. [place] records reveal a lipase of [address] showing subtle inflammation around the pancreas which is suggestive of acute pancreatitis and dilation of pancreatic duct, and significantly dilated at the head (8.5mm) without obstructing stone identified. ED evaluation at [facility] reveals CBC without leukocytosis, H/H 11.7/34.6; PT/INR 9.6/0.9; CMP Na 135, K 3.2, BUN/Cr 7.0; Lipase 1621; UA with protein, ketones, without bacteria; EtOH pending;. provided with 1L NSS, Ondansetron 4mg IV, morphine 4mg IV, acetaminophen 1g IV in ED. Please see Dr. Montanez's attestation for adjustments/additions to treatment plan. Discharge Exam General: NAD, VS as above Resp: normal respiratory effort, lungs clear to auscultation CV: RRR, no murmur, Abd: normal bowel sounds, very mild RUQ tenderness Extremities: Moves all extremities, no edema Neuro: A&O x3, Skin: intact, no lesions noted Discharge Plan Discharge Items Patient Disposition: Home - Self-Care Reason For Visit: PANCREATITIS Discharge Diagnosis: Pancreatitis Condition on Discharge: Fair Activity: Resume your previous activity Driving/Machine Use: No limitations Weightbearing: Full weightbearing Non-emergency contact: Primary Care Provider Call non-emergency contact if: you have any medication questions, your symptoms worsen and your pain is concerning for you Follow-up/Referrals: Andre Farrar DO [Primary Care Provider] - (follow up within one week ) Pacheco Aguiar MD [Staff Physician] - ([facility] - follow up ) Diet: Regular and Low Fat Addtl Attending Provider Instructions: Mr. Pandya You were hospitalized after having abdominal pain - this was found to be pancreatitis. This can be caused from gallstones, but your alcohol use is likely contributing to this developing. None of the imaging studies here showed stones, but did have a dilated duct. You should have outpatient follow up with this - you have request to follow up with [facility], I will fax the information from your stay to them. If you do not hear from them by Monday, please call their office. It is recommended that you stop drinking alcohol. Continue to advance your diet as tolerated. Avoid high fatty foods. Only use the oxycodone if you absolutely need it. No changes to your home medications. Pending Studies at Discharge: No Stand-Alone Forms: My [facility], Smoking Cessation Medications and DC Order Prescriptions: New oxycodone 5 mg tablet 5 mg PO Q6H PRN (Reason: pain) Qty: 7 0RF Continued multivitamin Tablet 1 tab PO DAILY carvedilol 6.25 mg tablet 6.25 mg PO BID diphenhydramine HCl [Benadryl] 25 mg Capsule 25 - 50 mg PO DIRECTED PRN (Reason: Allergic Reaction) losartan 100 mg tablet 100 mg PO DAILY buprenorphine-naloxone 8-2 mg tablet, sublingual 0.5 tab SUBLINGUAL TID omeprazole magnesium [Prilosec OTC] 20 mg Tablet,Delayed Release (Dr/Ec) 20 mg PO DAILY budesonide-formoterol [Breyna] 160-4.5 mcg/actuation HFA aerosol inhaler 2 inh INHALATION BID Discharge Orders: Discharge Order (Routine); Ordered 02/11/25 Ordered By: Celina Connolly/Other Patient Handouts: Pancreatitis Acute Dc, ED Diet, Low Fat Admission Data Admit Date/Time: 02/06/25 01:24 Attending Provider: Alejandro Swan Admit Provider: Ayesha Montanez Primary Care Provider: Andre Farrar Other Providers: Ayesha Montanez; Levar Starr I Other Interventions: Discharge Summary Assessment (RN) Last Done: 02/11/25 15:25 Hospital Stay Data Consultations 02/06/25 00:40 ED Decision to Admit Stat 02/06/25 05:31 Consult Gastroenterology Routine Diagnostic Imagining Performed Cholangiopancreatography MRI 02/06/25 00:40 EXAM: MR MRCP CLINICAL HISTORY: pancreatitis TECHNIQUE: Multiplanar/multisequence MRI of the upper abdomen with MRCP was performed without use of gadolinium. COMPARISON: none FINDINGS: Dilated entire length of main pancreatic duct(diameter-6.8mm) with few ductal calculi of size 3-4mm seen near head region and associated mild diffuse pancreatic parenchymal atrophy seen. No peripancreatic collection/cyst seen. Common bile duct is dilated(8mm) with distal smooth tapering and bilobar mild intrahepatic biliary ductal dilatation. No evidence of calculi seen. Mild fat stranding is noted at the level of the distal pancreatic body and pancreatic tail region. Reactive thickening of the anterior renal fascia is noted on left side with mild perinephric fat stranding and fluid. Suggested serum amylase/lipase correlation for underlying acute over chronic pancreatitis changes. The liver is of normal signal intensity without evidence of a hepatic mass. The gallbladder is unremarkable. The adrenal glands demonstrate no gross mass. The kidneys demonstrate no evidence of contour-deforming mass lesion. IMPRESSION: 1. Dilated entire length of main pancreatic duct with few ductal calculi near head region and associated mild pancreatic parenchymal atrophy-- Features of Chronic pancreatitis. 2. No peripancreatic collection/cyst seen. 3. Common bile duct is dilated with distal smooth tapering and bilobar mild intrahepatic biliary ductal dilatation. No evidence of calculi seen- Possible distal CBD benign stricture. Suggested ERCP correlation. 4. Mild fat stranding is noted at the level of the distal pancreatic body and pancreatic tail region. Reactive thickening of the anterior renal fascia is noted on left side with mild perinephric fat stranding and fluid. Suggested serum amylase/lipase correlation for underlying acute over chronic pancreatitis changes. Electronically signed by Sridhar Monaco 02-06-2025 02:34 AM Abdomen/Pelvis CT 02/08/25 21:55 Exam(s): CT ABDOMEN + PELVIS Without Contrast EXAM: CT Abdomen and Pelvis Without Intravenous Contrast CLINICAL HISTORY: Reason for exam: worsening abd pain in setting of pancreatitis. TECHNIQUE: Axial computed tomography images of the abdomen and pelvis without intravenous contrast. CTDI is 13.09 mGy and DLP is 612.35 mGy-cm. Automated exposure control was utilized for the study. A dose lowering technique was utilized adhering to the principles of ALARA. COMPARISON: CT abdomen/pelvis on 02/05/2025. MRCP on 02/06/2025. FINDINGS: Lung bases: Dependent atelectasis bilaterally. Pleural space: New small kptq-gujicdq-ogrs-right pleural effusions. ABDOMEN: Liver: Unremarkable. Gallbladder and bile ducts: Probable vicarious excretion of contrast in the gallbladder. No calcified stones. No ductal dilation. Pancreas: Mild fat stranding along the pancreas, suggesting acute pancreatitis. Persistent mild prominence of the pancreatic duct. Spleen: Unremarkable. No splenomegaly. Adrenals: Unremarkable. No mass. Kidneys and ureters: Unremarkable. No obstructing stones. No hydronephrosis. Stomach and bowel: Evaluation of the stomach is limited by underdistention. No mucosal thickening. No bowel obstruction or inflammation. PELVIS: Appendix: Normal appendix. Bladder: Prominence of the bladder wall is nonspecific. Please correlate with urinalysis to evaluate for cystitis. No stones. Reproductive: Mild calcifications in the prostate. ABDOMEN and PELVIS: Intraperitoneal space: Small amount of fluid in the posterior pelvis. No free air. Bones/joints: Mild degenerative changes of the spine. No acute fracture. No dislocation. Soft tissues: Bilateral fat containing inguinal hernias. Small fat containing umbilical hernia. Vasculature: Mild atherosclerotic changes of the vasculature. No abdominal aortic aneurysm. Lymph nodes: Unremarkable. No enlarged lymph nodes. IMPRESSION: 1. Mild fat stranding along the pancreas, suggesting acute pancreatitis. Persistent mild prominence of the pancreatic duct. 2. Prominence of the bladder wall is nonspecific. Please correlate with urinalysis to evaluate for cystitis. 3. New small owih-mbysaxl-vpyi-right pleural effusions. Electronically signed by: Td Yun M.D. 02/09/25 03:13 AM Abdomen Ultrasound 02/10/25 09:32 EXAM: US abdomen limited CLINICAL HISTORY: Rising bilirubin. TECHNIQUE: Ultrasound examination of the RUQ was performed in real-time. COMPARISON: Prior CT abdomen and pelvis dated 02/08/2025 and MRCP : 02/06/2025 were reviewed. FINDINGS: Liver: Liver size: Liver appears normal in size (14.3 cm) with homogeneous echotexture. No evidence of focal lesions, cysts, or masses. Hepatic vasculature appears normal. Gallbladder: [id number] Gallbladder is distended, measuring 11.3 cm in length and harboring low-level echo content with thickened edematous wall (11 mm thick) and surrounding hyperemia /[id number].5.1.2 small fluid; acute cholecystitis./OBX.5.1.2/OBX.5.1 No gallstones noted. Biliary Tree: Common bile duct diameter: [7 mm]. The common bile duct is mildly dilated. The visualized pancreatic head shows an inhomogeneous hypoechoic texture. Right Kidney: The right kidney appears normal in size with preserved corticomedullary differentiation. No evidence of hydronephrosis, renal cysts, or masses. IMPRESSION: 1. Signs of acute muddy cholecystitis are as described. 2. Mildly dilated CBD correlates with the prior MRCP and bilirubin profile. Please refer to the dedicated report. 3. The visualized pancreatic head shows inhomogeneous hypoechoic texture; it needs serum amylase and lipase correlation. Electronically signed by Red Coronel 02-10-2025 7:41 PM Pending Results Patient Have Any Pending Studies at Discharge: No Discharge Instructions Given to Patient (Per Discharging Provider) Mr. Pandya You were hospitalized after having abdominal pain - this was found to be pancreatitis. This can be caused from gallstones, but your alcohol use is likely contributing to this developing. None of the imaging studies here showed stones, but did have a dilated duct. You should have outpatient follow up with this - you have request to follow up with [facility], I will fax the information from your stay to them. If you do not hear from them by Monday, please call their office. It is recommended that you stop drinking alcohol. Continue to advance your diet as tolerated. Avoid high fatty foods. Only use the oxycodone if you absolutely need it. No changes to your home medications. Supervising Physician Co-Signing Physician Notes The patient was not seen by me. The chart was reviewed. Case discussed with CARLOS Feliciano. Agree with assessment and plan Total Time Total Time Spent Total Time Spent (In Minutes): Time spent day of discharge 40 minutes including direct patient care, medication reconciliation, documentation, review of labs and images, and coordination of care. Discussed case with [facility] Coding Level of Care Code 35574 INP/OBS DISCH >30 MIN Diagnoses Acute pancreatitis K85.90 Acute pancreatitis complication: unspecified Pancreatitis type: unspecified pancreatitis type Hyponatremia E87.1 Hypokalemia E87.6
[2025-02-11 15:25] VITALS: BP 130/74
[2025-02-11 15:59] VITALS: PULSE 65
== END 2025-02-11 16:15 | disposition home or self-care (01) | DRG 439 ==
LOC: ED 22:56 → EDINP 02-06 01:24 → SUATTDRO 02-06 01:24 → 3E 02-06 04:55 → 2N 02-09 01:17